=== PATIENT | female | born 1970 | race African-American/Black ===

== ENCOUNTER 2017-08-06 10:29 | Inpatient (IN) ==
[2017-08-06] MEDS ORDERED: HYDROmorphone 2 MG/1 ML VIAL IV STA (10:48)
[2017-08-06] MEDS ORDERED: ONDANSETRON 4 MG/2 ML VIAL IV STA (10:48)
[2017-08-06] MEDS: PIPERACILLIN/TAZOBACTAM 3,375 MG in SODIUM CHLORIDE 0.9% 100 ML IV SCH ×2 (11:30→18:44)
[2017-08-06 11:31] LABS: Basophils % 0.1 % (0.0-0.8); Eosinophils # 0.1 10*3/uL (0.0-0.87); Eosinophils % 0.9 % (0.00-10.9); Hematocrit 38.4 VOL% (35.7-47.0); Hemoglobin 12.5 GM/DL (12.0-16.0); Immature Granulocytes % 0.6 %; Immature Granulocytes Absolute 0.08 #; Lymphocytes # 1.1 10*3/uL (1.4-4.0); Lymphocytes % 8.4 % (21.3-54.2); Mean Corpuscular HGB Conc 32.6 GM/DL (32-36); Mean Corpuscular Hemoglobin 27 PG (27-34); Mean Corpuscular Volume 83.5 FL (87-102); Mean Platelet Volume 9.2 FL (9.6-12.0); Monocytes # 0.9 10*3/uL (0.11-0.8); Monocytes % 6.8 % (1.7-12.7); Neutrophils # 11.3 10*3/uL (1.4-7.4); Neutrophils % 83.2 % (38.7-73.9); Platelet Count 487 T/CUMM (130-400); Red Cell Distribution Width 13.5 % (9.3-17.3); White Blood Count 13.6 T/CUMM (4-12)
[2017-08-06 11:39] LABS: PT Patient Result 10.2 SECS; Partial Thromboplastin Time 22.5 SECS (0-40)
[2017-08-06 12:00] LABS: Bilirubin,Total 0.4 MG/DL (0.2-1.0); Calcium 8.9 MG/DL (8.5-10.1); Lactic Acid 1.4 MMOL/L (0.4-2.0); Osmolality,Calculated 283.7 MOS/KG (273-304); Potassium 3.3 MMOL/L (3.5-5.1); Total Protein 8.2 G/DL (6.4-8.3)
[2017-08-06] MEDS ORDERED: HYDROmorphone 2 MG/1 ML VIAL IV ONE (12:42)
[2017-08-06 12:50] LABS: Apearance,Urine Slightly Hazy (Clear); Bilirubin,Urine Negative (Negative); Blood, Urine Negative (Negative); Glucose,Urine (UA) >=500 mg/dL (Negative); Ketones,Urine 80 mg/dL (Negative); Mucus,Urine Occasional /LPF (Occasional); Nitrite,Urine Negative (Negative); Protein,Urine 100 MG/DL; RBC,Urine 3 /HPF (0-4); Squamous Epithelial Cell,Urine Occasional /HPF (0-10); Urine Color Yellow (Yellow); Urine Specific Gravity 1.035 (1.001-1.035); WBC,Urine 4 /HPF (0-6)
[2017-08-06] MEDS: VANCOMYCIN INJ 1,000 MG in SODIUM CHLORIDE 0.9% 250 ML IV SCH ×2 (13:31→23:08)
[2017-08-06] MEDS ORDERED: DEXTROSE 50% 25 GM/50 ML VIAL IV PRN (16:03)
[2017-08-06] MEDS ORDERED: GLUCAGON 1 MG VIAL IM PRN (16:03)
[2017-08-06] MEDS: methIMAzole 10 MG TABLET PO SCH ×2 (16:51→22:46)
[2017-08-06] MEDS: INSULIN REGULAR 100 UNIT/ML SUBCUT SCH ×2 (16:52→22:51)
[2017-08-06] MEDS: ENOXAPARIN 40 MG/0.4 ML SYRINGE SUBCUT SCH (16:52)
[2017-08-06] MEDS: SODIUM CHLORIDE 0.9% 1,000 ML IV SCH (16:53)
[2017-08-06 17:38] LABS: Free T4 (Free Thyroxine) 1.75 NG/DL (0.76-1.46); Thyroid Stimulating Hormone 1.04 uIU/ml (0.358-3.74)
[2017-08-06] MEDS ORDERED: MORPHINE 4 MG/1 ML VIAL IV PRN (17:43)
[2017-08-06] MEDS: MORPHINE 4 MG/1 ML VIAL IV PRN (18:43)
[2017-08-06] MEDS: tiZANidine 4 MG TABLET PO SCH (22:45)
[2017-08-06] MEDS: MULTIVITAMIN (INTRINSIC) CAPSULE PO SCH (22:46)
[2017-08-06] MEDS: PANTOPRAZOLE 40 MG TABLET PO SCH (22:46)
[2017-08-06] MEDS: TOPIRAMATE 100 MG TABLET PO SCH (22:46)
[2017-08-06] MEDS: GABAPENTIN 300 MG CAPSULE PO SCH (22:46)
[2017-08-06] MEDS: INSULIN GLARGINE 100 UNIT/ML SUBCUT SCH (22:52)
[2017-08-06] MEDS: PROPRANOLOL LA 60 MG CAPSULE PO SCH (23:49)
[2017-08-07] MEDS: PIPERACILLIN/TAZOBACTAM 3,375 MG in SODIUM CHLORIDE 0.9% 100 ML IV SCH ×3 (03:16→20:50)
[2017-08-07] MEDS: ENOXAPARIN 40 MG/0.4 ML SYRINGE SUBCUT SCH ×2 (04:38→17:02)
[2017-08-07] MEDS ORDERED: FAMOTIDINE 20 MG TABLET PO ONE (06:30)
[2017-08-07] MEDS ORDERED: DIAZEPAM 5 MG TABLET PO ONE (06:30)
[2017-08-07 06:51] LABS: Basophils % 0.2 % (0.0-0.8); Eosinophils # 0.1 10*3/uL (0.0-0.87); Eosinophils % 0.5 % (0.00-10.9); Hematocrit 33.7 VOL% (35.7-47.0); Hemoglobin 10.7 GM/DL (12.0-16.0); Immature Granulocytes % 0.8 %; Immature Granulocytes Absolute 0.14 #; Lymphocytes # 1.1 10*3/uL (1.4-4.0); Lymphocytes % 6.3 % (21.3-54.2); Mean Corpuscular HGB Conc 31.8 GM/DL (32-36); Mean Corpuscular Hemoglobin 27 PG (27-34); Mean Corpuscular Volume 86.2 FL (87-102); Mean Platelet Volume 9.5 FL (9.6-12.0); Monocytes # 1.3 10*3/uL (0.11-0.8); Monocytes % 7.4 % (1.7-12.7); Neutrophils # 14.6 10*3/uL (1.4-7.4); Neutrophils % 84.8 % (38.7-73.9); Platelet Count 467 T/CUMM (130-400); Red Blood Count 3.91 MC/CUMM (3.8-5.5); Red Cell Distribution Width 13.7 % (9.3-17.3); White Blood Count 17.2 T/CUMM (4-12)
[2017-08-07 07:29] LABS: Calcium 8.4 MG/DL (8.5-10.1); Osmolality,Calculated 279.5 MOS/KG (273-304); Potassium 3.2 MMOL/L (3.5-5.1)
[2017-08-07] MEDS: methIMAzole 10 MG TABLET PO SCH ×3 (07:51→17:02)
[2017-08-07] MEDS: INSULIN REGULAR 100 UNIT/ML SUBCUT SCH ×4 (07:52→20:48)
[2017-08-07] MEDS: ACETAMINOPHEN 325 MG TABLET PO PRN ×2 (08:01→20:49)
[2017-08-07] MEDS: PROPRANOLOL LA 60 MG CAPSULE PO SCH ×2 (08:11→20:49)
[2017-08-07] MEDS: TOPIRAMATE 100 MG TABLET PO SCH ×2 (08:16→20:50)
[2017-08-07] MEDS ORDERED: HYDROmorphone 2 MG/1 ML VIAL IV PRN (10:05)
[2017-08-07] MEDS ORDERED: HYDROmorphone 2 MG/1 ML VIAL ONE (10:05)
[2017-08-07] MEDS ORDERED: ONDANSETRON 4 MG/2 ML VIAL IV PRN (10:05)
[2017-08-07] MEDS ORDERED: ONDANSETRON 4 MG/2 ML VIAL ONE (10:06)
[2017-08-07] MEDS ORDERED: SEVOFLURANE 1 UNIT/15 MINUTE INH ONE (10:14)
[2017-08-07] MEDS ORDERED: PROPOFOL 200 MG/20 ML VIAL IV ONE (10:14)
[2017-08-07] MEDS ORDERED: fentaNYL 100 MCG/2 ML VIAL ONE (10:16)
[2017-08-07] MEDS: INSULIN GLARGINE 100 UNIT/ML SUBCUT SCH ×2 (10:54→20:48)
[2017-08-07] MEDS: GABAPENTIN 300 MG CAPSULE PO SCH ×3 (10:54→20:39)
[2017-08-07] MEDS: MULTIVITAMIN (INTRINSIC) CAPSULE PO SCH ×2 (10:54→20:39)
[2017-08-07] MEDS: PANTOPRAZOLE 40 MG TABLET PO SCH ×2 (10:54→20:50)
[2017-08-07] MEDS: tiZANidine 4 MG TABLET PO SCH ×2 (10:54→20:39)
[2017-08-07] MEDS ORDERED: POTASSIUM CHLORIDE 20 MEQ TABLET PO ONE (11:16)
[2017-08-07] MEDS ORDERED: POTASSIUM CHLORIDE 20 MEQ TABLET PO PRN (11:16)
[2017-08-07] MEDS: VANCOMYCIN INJ 1,000 MG in SODIUM CHLORIDE 0.9% 250 ML IV SCH (11:28)
[2017-08-07] MEDS: SODIUM CHLORIDE 0.9% 1,000 ML IV SCH ×3 (12:29→22:33)
[2017-08-07] MEDS: POTASSIUM CHLORIDE RIDER 10 MEQ in PREMIX 1 EACH IV PRN ×2 (17:00→18:25)
[2017-08-08] MEDS: VANCOMYCIN INJ 1,000 MG in SODIUM CHLORIDE 0.9% 250 ML IV SCH ×3 (00:36→22:37)
[2017-08-08] MEDS: methIMAzole 10 MG TABLET PO SCH ×4 (00:36→18:32)
[2017-08-08] MEDS: PIPERACILLIN/TAZOBACTAM 3,375 MG in SODIUM CHLORIDE 0.9% 100 ML IV SCH ×3 (04:20→18:32)
[2017-08-08] MEDS: ENOXAPARIN 40 MG/0.4 ML SYRINGE SUBCUT SCH ×2 (04:21→16:54)
[2017-08-08] MEDS: INSULIN REGULAR 100 UNIT/ML SUBCUT SCH ×4 (08:20→21:49)
[2017-08-08] MEDS: INSULIN GLARGINE 100 UNIT/ML SUBCUT SCH ×2 (08:20→21:54)
[2017-08-08] MEDS: PROPRANOLOL LA 60 MG CAPSULE PO SCH ×2 (08:21→21:53)
[2017-08-08] MEDS: MULTIVITAMIN (INTRINSIC) CAPSULE PO SCH ×2 (08:21→21:54)
[2017-08-08] MEDS: tiZANidine 4 MG TABLET PO SCH ×2 (08:21→21:54)
[2017-08-08] MEDS: GABAPENTIN 300 MG CAPSULE PO SCH ×3 (08:21→21:54)
[2017-08-08] MEDS: TOPIRAMATE 100 MG TABLET PO SCH ×2 (08:21→21:54)
[2017-08-08] MEDS: PANTOPRAZOLE 40 MG TABLET PO SCH ×2 (08:21→21:54)
[2017-08-08] MEDS: SODIUM CHLOR 0.9% KCL 40 MEQ 40 MEQ/1,000 ML BAG IV SCH ×3 (09:28→18:40)
[2017-08-09] MEDS: methIMAzole 10 MG TABLET PO SCH ×4 (01:50→17:57)
[2017-08-09] MEDS: SODIUM CHLOR 0.9% KCL 40 MEQ 40 MEQ/1,000 ML BAG IV SCH ×2 (03:13→09:34)
[2017-08-09] MEDS: PIPERACILLIN/TAZOBACTAM 3,375 MG in SODIUM CHLORIDE 0.9% 100 ML IV SCH ×3 (03:13→21:29)
[2017-08-09] MEDS: ENOXAPARIN 40 MG/0.4 ML SYRINGE SUBCUT SCH ×2 (04:00→16:52)
[2017-08-09 06:57] LABS: Basophils % 0.3 % (0.0-0.8); Eosinophils # 0.2 10*3/uL (0.0-0.87); Eosinophils % 2.3 % (0.00-10.9); Hematocrit 30.7 VOL% (35.7-47.0); Hemoglobin 9.5 GM/DL (12.0-16.0); Immature Granulocytes % 0.7 %; Immature Granulocytes Absolute 0.07 #; Lymphocytes % 10.3 % (21.3-54.2); Mean Corpuscular HGB Conc 30.9 GM/DL (32-36); Mean Corpuscular Hemoglobin 27 PG (27-34); Mean Corpuscular Volume 87.5 FL (87-102); Mean Platelet Volume 9.1 FL (9.6-12.0); Monocytes # 0.7 10*3/uL (0.11-0.8); Monocytes % 7.2 % (1.7-12.7); Neutrophils % 79.2 % (38.7-73.9); Platelet Count 403 T/CUMM (130-400); Red Blood Count 3.51 MC/CUMM (3.8-5.5); White Blood Count 10.1 T/CUMM (4-12)
[2017-08-09 07:18] LABS: Calcium 7.9 MG/DL (8.5-10.1); Potassium 4.1 MMOL/L (3.5-5.1)
[2017-08-09] MEDS: INSULIN REGULAR 100 UNIT/ML SUBCUT SCH ×4 (07:30→21:29)
[2017-08-09] MEDS: POTASSIUM CHLORIDE INJ 20 MEQ, SODIUM CHLORIDE 23.4% CONC INJ 38.5 MEQ in STERILE WATER... IV SCH ×2 (09:06→21:27)
[2017-08-09] MEDS: GABAPENTIN 300 MG CAPSULE PO SCH ×3 (09:06→21:31)
[2017-08-09] MEDS: PANTOPRAZOLE 40 MG TABLET PO SCH ×2 (09:06→21:30)
[2017-08-09] MEDS: tiZANidine 4 MG TABLET PO SCH ×2 (09:06→21:31)
[2017-08-09] MEDS: PROPRANOLOL LA 60 MG CAPSULE PO SCH ×2 (09:07→21:31)
[2017-08-09] MEDS: MULTIVITAMIN (INTRINSIC) CAPSULE PO SCH ×2 (09:07→21:30)
[2017-08-09] MEDS: INSULIN GLARGINE 100 UNIT/ML SUBCUT SCH ×2 (09:07→21:29)
[2017-08-09] MEDS: TOPIRAMATE 100 MG TABLET PO SCH ×2 (09:08→21:30)
[2017-08-09] MEDS: VANCOMYCIN INJ 1,000 MG in SODIUM CHLORIDE 0.9% 250 ML IV SCH (11:21)
[2017-08-10] MEDS: methIMAzole 10 MG TABLET PO SCH ×5 (01:32→20:11)
[2017-08-10] MEDS: VANCOMYCIN INJ 1,000 MG in SODIUM CHLORIDE 0.9% 250 ML IV SCH ×2 (01:32→10:15)
[2017-08-10] MEDS: ENOXAPARIN 40 MG/0.4 ML SYRINGE SUBCUT SCH ×2 (05:15→16:53)
[2017-08-10] MEDS: POTASSIUM CHLORIDE INJ 20 MEQ, SODIUM CHLORIDE 23.4% CONC INJ 38.5 MEQ in STERILE WATER... IV SCH (05:15)
[2017-08-10] MEDS: PIPERACILLIN/TAZOBACTAM 3,375 MG in SODIUM CHLORIDE 0.9% 100 ML IV SCH ×2 (05:15→11:36)
[2017-08-10 07:38] LABS: Basophils % 0.3 % (0.0-0.8); Eosinophils # 0.3 10*3/uL (0.0-0.87); Eosinophils % 3.1 % (0.00-10.9); Hematocrit 32.3 VOL% (35.7-47.0); Hemoglobin 9.7 GM/DL (12.0-16.0); Immature Granulocytes Absolute 0.09 #; Lymphocytes # 1.2 10*3/uL (1.4-4.0); Lymphocytes % 13.1 % (21.3-54.2); Mean Corpuscular Hemoglobin 27 PG (27-34); Mean Corpuscular Volume 88.5 FL (87-102); Mean Platelet Volume 9.1 FL (9.6-12.0); Monocytes # 0.8 10*3/uL (0.11-0.8); Monocytes % 8.5 % (1.7-12.7); Neutrophils # 6.8 10*3/uL (1.4-7.4); Platelet Count 425 T/CUMM (130-400); Red Blood Count 3.65 MC/CUMM (3.8-5.5); Red Cell Distribution Width 14.1 % (9.3-17.3); White Blood Count 9.2 T/CUMM (4-12)
[2017-08-10 08:05] LABS: Calcium 7.9 MG/DL (8.5-10.1); Osmolality,Calculated 290.6 MOS/KG (273-304); Potassium 4.2 MMOL/L (3.5-5.1)
[2017-08-10] MEDS: INSULIN REGULAR 100 UNIT/ML SUBCUT SCH ×4 (08:46→20:11)
[2017-08-10] MEDS: PROPRANOLOL LA 60 MG CAPSULE PO SCH ×2 (10:11→20:11)
[2017-08-10] MEDS: TOPIRAMATE 100 MG TABLET PO SCH ×2 (10:11→20:11)
[2017-08-10] MEDS: GABAPENTIN 300 MG CAPSULE PO SCH ×3 (10:11→20:11)
[2017-08-10] MEDS: MULTIVITAMIN (INTRINSIC) CAPSULE PO SCH ×2 (10:11→20:11)
[2017-08-10] MEDS: tiZANidine 4 MG TABLET PO SCH ×2 (10:11→20:12)
[2017-08-10] MEDS: INSULIN GLARGINE 100 UNIT/ML SUBCUT SCH ×2 (10:11→20:10)
[2017-08-10] MEDS: PANTOPRAZOLE 40 MG TABLET PO SCH ×2 (10:11→20:11)
[2017-08-10] MEDS: SODIUM HYPOCHLORITE 0.25% IRRIG 473 ML BOTTLE TOP SCH (14:44)
[2017-08-10] MEDS: SODIUM CHLORIDE 23.4% CONC INJ 38.5 MEQ in STERILE WATER INJ 1,000 ML IV SCH (15:40)
[2017-08-10] MEDS: ceFAZolin 1,000 MG in SYRINGE 1 EACH IV SCH (15:42)
[2017-08-11] MEDS: ENOXAPARIN 40 MG/0.4 ML SYRINGE SUBCUT SCH ×2 (03:37→16:31)
[2017-08-11] MEDS: ceFAZolin 1,000 MG in SYRINGE 1 EACH IV SCH ×2 (03:37→16:02)
[2017-08-11 06:45] LABS: Calcium 8.7 MG/DL (8.5-10.1); Osmolality,Calculated 286.1 MOS/KG (273-304); Potassium 3.9 MMOL/L (3.5-5.1)
[2017-08-11] MEDS: SODIUM CHLORIDE 23.4% CONC INJ 38.5 MEQ in STERILE WATER INJ 1,000 ML IV SCH ×2 (09:03→18:50)
[2017-08-11] MEDS: methIMAzole 10 MG TABLET PO SCH ×3 (09:05→22:06)
[2017-08-11] MEDS: tiZANidine 4 MG TABLET PO SCH ×2 (09:05→22:06)
[2017-08-11] MEDS: MULTIVITAMIN (INTRINSIC) CAPSULE PO SCH ×2 (09:05→22:05)
[2017-08-11] MEDS: PANTOPRAZOLE 40 MG TABLET PO SCH ×2 (09:05→22:06)
[2017-08-11] MEDS: PROPRANOLOL LA 60 MG CAPSULE PO SCH ×2 (09:05→22:05)
[2017-08-11] MEDS: INSULIN LISPRO 100 UNIT/ML SUBCUT SCH ×3 (09:05→16:31)
[2017-08-11] MEDS: INSULIN GLARGINE 100 UNIT/ML SUBCUT SCH ×2 (09:06→22:06)
[2017-08-11] MEDS: TOPIRAMATE 100 MG TABLET PO SCH ×2 (09:06→22:06)
[2017-08-11] MEDS: INSULIN REGULAR 100 UNIT/ML SUBCUT SCH ×5 (09:06→22:06)
[2017-08-11] MEDS: GABAPENTIN 300 MG CAPSULE PO SCH ×3 (09:06→22:06)
[2017-08-11] MEDS: SODIUM HYPOCHLORITE 0.25% IRRIG 473 ML BOTTLE TOP SCH (10:04)
[2017-08-12] MEDS: ceFAZolin 1,000 MG in SYRINGE 1 EACH IV SCH ×2 (03:46→15:57)
[2017-08-12] MEDS: ENOXAPARIN 40 MG/0.4 ML SYRINGE SUBCUT SCH ×2 (03:49→18:08)
[2017-08-12] MEDS: SODIUM CHLORIDE 23.4% CONC INJ 38.5 MEQ in STERILE WATER INJ 1,000 ML IV SCH ×2 (05:45→18:08)
[2017-08-12] MEDS: INSULIN LISPRO 100 UNIT/ML SUBCUT SCH ×3 (09:31→16:03)
[2017-08-12] MEDS: INSULIN REGULAR 100 UNIT/ML SUBCUT SCH ×4 (09:32→22:28)
[2017-08-12] MEDS: methIMAzole 10 MG TABLET PO SCH ×3 (09:32→22:26)
[2017-08-12] MEDS: PROPRANOLOL LA 60 MG CAPSULE PO SCH ×2 (09:32→22:26)
[2017-08-12] MEDS: INSULIN GLARGINE 100 UNIT/ML SUBCUT SCH ×2 (09:32→22:27)
[2017-08-12] MEDS: MULTIVITAMIN (INTRINSIC) CAPSULE PO SCH ×2 (09:32→22:26)
[2017-08-12] MEDS: TOPIRAMATE 100 MG TABLET PO SCH ×2 (09:32→22:25)
[2017-08-12] MEDS: tiZANidine 4 MG TABLET PO SCH ×2 (09:33→22:26)
[2017-08-12] MEDS: GABAPENTIN 300 MG CAPSULE PO SCH ×3 (09:33→22:25)
[2017-08-12] MEDS: PANTOPRAZOLE 40 MG TABLET PO SCH ×2 (09:33→22:26)
[2017-08-12] MEDS: SODIUM HYPOCHLORITE 0.25% IRRIG 473 ML BOTTLE TOP SCH (11:43)
[2017-08-13] MEDS: SODIUM CHLORIDE 23.4% CONC INJ 38.5 MEQ in STERILE WATER INJ 1,000 ML IV SCH ×2 (00:51→10:22)
[2017-08-13] MEDS: ceFAZolin 1,000 MG in SYRINGE 1 EACH IV SCH ×2 (03:33→14:05)
[2017-08-13] MEDS: ENOXAPARIN 40 MG/0.4 ML SYRINGE SUBCUT SCH ×2 (05:01→17:47)
[2017-08-13 07:48] LABS: Basophils % 0.4 % (0.0-0.8); Eosinophils # 0.2 10*3/uL (0.0-0.87); Eosinophils % 1.9 % (0.00-10.9); Hematocrit 30.3 VOL% (35.7-47.0); Immature Granulocytes % 1.8 %; Lymphocytes # 1.3 10*3/uL (1.4-4.0); Lymphocytes % 11.5 % (21.3-54.2); Mean Corpuscular Hemoglobin 27 PG (27-34); Mean Corpuscular Volume 82.8 FL (87-102); Mean Platelet Volume 9.3 FL (9.6-12.0); Monocytes # 1.2 10*3/uL (0.11-0.8); Monocytes % 10.2 % (1.7-12.7); Neutrophils # 8.4 10*3/uL (1.4-7.4); Neutrophils % 74.2 % (38.7-73.9); Platelet Count 418 T/CUMM (130-400); Red Blood Count 3.66 MC/CUMM (3.8-5.5); Red Cell Distribution Width 14.5 % (9.3-17.3); White Blood Count 11.3 T/CUMM (4-12)
[2017-08-13 08:15] LABS: Calcium 8.3 MG/DL (8.5-10.1); Osmolality,Calculated 280.5 MOS/KG (273-304); Potassium 3.5 MMOL/L (3.5-5.1)
[2017-08-13] MEDS: INSULIN REGULAR 100 UNIT/ML SUBCUT SCH ×3 (09:00→17:47)
[2017-08-13] MEDS: INSULIN LISPRO 100 UNIT/ML SUBCUT SCH ×3 (10:21→17:48)
[2017-08-13] MEDS: INSULIN GLARGINE 100 UNIT/ML SUBCUT SCH (10:21)
[2017-08-13] MEDS: TOPIRAMATE 100 MG TABLET PO SCH (10:21)
[2017-08-13] MEDS: PANTOPRAZOLE 40 MG TABLET PO SCH (10:21)
[2017-08-13] MEDS: MULTIVITAMIN (INTRINSIC) CAPSULE PO SCH (10:21)
[2017-08-13] MEDS: methIMAzole 10 MG TABLET PO SCH ×2 (10:21→14:05)
[2017-08-13] MEDS: GABAPENTIN 300 MG CAPSULE PO SCH ×2 (10:22→14:05)
[2017-08-13] MEDS: PROPRANOLOL LA 60 MG CAPSULE PO SCH (10:22)
[2017-08-13] MEDS: tiZANidine 4 MG TABLET PO SCH (10:22)
[2017-08-13] MEDS: SODIUM HYPOCHLORITE 0.25% IRRIG 473 ML BOTTLE TOP SCH (10:23)
[2017-08-13] MEDS: MORPHINE 4 MG/1 ML VIAL IV PRN (16:20)
[2017-08-13 17:29] VITALS: BP 143/89
== END 2017-08-13 17:51 | disposition swing bed (61) | DRG 710 ==
LOC: N.ED 10:29 → N.EDINP 12:01 → SUATTDRO 12:01 → N.5E 12:34
PROVIDERS: ADMIT Hospitalist; ATTEND Internal Medicine

== ENCOUNTER 2018-04-04 14:07 | Inpatient (IN) ==
[2018-04-04] MEDS ORDERED: MORPHINE 4 MG/1 ML VIAL IV STA (15:17)
[2018-04-04] MEDS ORDERED: ONDANSETRON 4 MG/2 ML VIAL IV STA (15:17)
[2018-04-04 15:46] LABS: Basophils % 0.3 % (0.0-0.8); Eosinophils # 0.1 10*3/uL (0.0-0.87); Eosinophils % 0.7 % (0.00-10.9); Hematocrit 36.2 VOL% (35.7-47.0); Hemoglobin 11.1 GM/DL (12.0-16.0); Immature Granulocytes % 0.5 %; Immature Granulocytes Absolute 0.05 #; Lymphocytes # 1.8 10*3/uL (1.4-4.0); Lymphocytes % 17.6 % (21.3-54.2); Mean Corpuscular HGB Conc 30.7 GM/DL (32-36); Mean Corpuscular Hemoglobin 26 PG (27-34); Mean Corpuscular Volume 83.4 FL (87-102); Mean Platelet Volume 9.4 FL (9.6-12.0); Monocytes # 0.6 10*3/uL (0.11-0.8); Monocytes % 6.3 % (1.7-12.7); Neutrophils # 7.5 10*3/uL (1.4-7.4); Neutrophils % 74.6 % (38.7-73.9); Platelet Count 330 T/CUMM (130-400); Red Blood Count 4.34 MC/CUMM (3.8-5.5); Red Cell Distribution Width 13.3 % (9.3-17.3); White Blood Count 10.1 T/CUMM (4-12)
[2018-04-04 15:58] LABS: INR 0.9
[2018-04-04 16:08] LABS: Calcium 8.6 MG/DL (8.5-10.1); Osmolality,Calculated 280.5 MOS/KG (273-304); Potassium 3.5 MMOL/L (3.5-5.1)
[2018-04-04] MEDS ORDERED: ONDANSETRON 4 MG/2 ML VIAL ONE (16:11)
[2018-04-04] MEDS ORDERED: MORPHINE 4 MG/1 ML VIAL ONE (16:11)
[2018-04-04] MEDS ORDERED: GLUCAGON 1 MG VIAL IM PRN (20:26)
[2018-04-04] MEDS ORDERED: DEXTROSE 50% 25 GM/50 ML SYRINGE IV PRN (20:26)
[2018-04-04 21:02] LABS: T4 (Thyroxine) 13.9 UG/DL (4.7-13.3); Thyroid Stimulating Hormone < 0.005 uIU/ml (0.358-3.74)
[2018-04-04] MEDS ORDERED: ONDANSETRON 4 MG/2 ML VIAL IV PRN (22:38)
[2018-04-04] MEDS: ATORVASTATIN 40 MG TABLET PO SCH (22:54)
[2018-04-04] MEDS: GABAPENTIN 300 MG CAPSULE PO SCH (22:54)
[2018-04-04] MEDS: SODIUM CHLORIDE 0.9% 1,000 ML IV SCH (22:55)
[2018-04-04] MEDS: LACTATED RINGERS 1,000 ML IV SCH (22:56)
[2018-04-04] MEDS: INSULIN REGULAR 100 UNIT/ML SUBCUT SCH (22:56)
[2018-04-04] MEDS: HYDROmorphone 2 MG/1 ML VIAL IV PRN (22:57)
[2018-04-04] MEDS ORDERED: INFLUENZA VIRUS VACCINE 0.5 ML SYRINGE IM ONE (23:01)
[2018-04-05] MEDS: HEPARIN DRIP 25,000 UNITS/500 ML PREMIX IV SCH ×2 (00:28→20:39)
[2018-04-05 04:20] LABS: Basophils % 0.2 % (0.0-0.8); Eosinophils # 0.1 10*3/uL (0.0-0.87); Eosinophils % 0.5 % (0.00-10.9); Hemoglobin 10.5 GM/DL (12.0-16.0); Immature Granulocytes % 0.5 %; Immature Granulocytes Absolute 0.05 #; Lymphocytes # 2.3 10*3/uL (1.4-4.0); Lymphocytes % 20.8 % (21.3-54.2); Mean Corpuscular HGB Conc 30.9 GM/DL (32-36); Mean Corpuscular Hemoglobin 26 PG (27-34); Mean Corpuscular Volume 82.5 FL (87-102); Mean Platelet Volume 9.4 FL (9.6-12.0); Monocytes # 0.7 10*3/uL (0.11-0.8); Monocytes % 6.2 % (1.7-12.7); Neutrophils # 7.8 10*3/uL (1.4-7.4); Neutrophils % 71.8 % (38.7-73.9); Platelet Count 311 T/CUMM (130-400); Red Blood Count 4.12 MC/CUMM (3.8-5.5); Red Cell Distribution Width 13.4 % (9.3-17.3); White Blood Count 10.8 T/CUMM (4-12)
[2018-04-05 04:49] LABS: Calcium 8.6 MG/DL (8.5-10.1); Osmolality,Calculated 274.7 MOS/KG (273-304); Potassium 3.3 MMOL/L (3.5-5.1)
[2018-04-05] MEDS: SODIUM CHLORIDE 0.9% 1,000 ML IV SCH ×3 (06:11→20:36)
[2018-04-05] MEDS: HYDROmorphone 2 MG/1 ML VIAL IV PRN ×2 (06:12→12:13)
[2018-04-05] MEDS: INSULIN REGULAR 100 UNIT/ML SUBCUT SCH ×4 (07:36→22:05)
[2018-04-05] MEDS ORDERED: GLUCAGON 1 MG VIAL IM PRN (09:21)
[2018-04-05] MEDS ORDERED: DEXTROSE 50% 25 GM/50 ML VIAL IV PRN (09:21)
[2018-04-05] MEDS: METOPROLOL TARTRATE 25 MG TABLET PO SCH ×2 (10:13→20:37)
[2018-04-05] MEDS: GABAPENTIN 300 MG CAPSULE PO SCH ×3 (10:13→20:37)
[2018-04-05] MEDS: methIMAzole 10 MG TABLET PO SCH (10:13)
[2018-04-05] MEDS: PANTOPRAZOLE 40 MG TABLET PO SCH (10:13)
[2018-04-05] MEDS: LACTATED RINGERS 1,000 ML IV SCH (20:36)
[2018-04-05] MEDS: ATORVASTATIN 40 MG TABLET PO SCH (20:38)
[2018-04-05] MEDS ORDERED: INSULIN GLARGINE 100 UNIT/ML SUBCUT SCH (21:00)
[2018-04-06] MEDS: HYDROmorphone 2 MG/1 ML VIAL IV PRN ×5 (01:20→22:18)
[2018-04-06] MEDS: LACTATED RINGERS 1,000 ML IV SCH ×2 (01:38→20:28)
[2018-04-06] MEDS: POTASSIUM CHLORIDE 20 MEQ TABLET PO PRN (03:50)
[2018-04-06 05:40] LABS: Basophils % 0.2 % (0.0-0.8); Eosinophils % 0.4 % (0.00-10.9); Hematocrit 33.3 VOL% (35.7-47.0); Hemoglobin 10.4 GM/DL (12.0-16.0); Immature Granulocytes % 0.3 %; Immature Granulocytes Absolute 0.03 #; Lymphocytes # 1.7 10*3/uL (1.4-4.0); Lymphocytes % 17.4 % (21.3-54.2); Mean Corpuscular HGB Conc 31.2 GM/DL (32-36); Mean Corpuscular Hemoglobin 26 PG (27-34); Mean Corpuscular Volume 82.2 FL (87-102); Mean Platelet Volume 10.1 FL (9.6-12.0); Monocytes # 0.9 10*3/uL (0.11-0.8); Monocytes % 8.9 % (1.7-12.7); Neutrophils # 7.2 10*3/uL (1.4-7.4); Neutrophils % 72.8 % (38.7-73.9); Platelet Count 341 T/CUMM (130-400); Red Blood Count 4.05 MC/CUMM (3.8-5.5); Red Cell Distribution Width 13.2 % (9.3-17.3); Risk Ratio 3.75; VLDL CHOLESTEROL 19.8 MG/DL; White Blood Count 9.9 T/CUMM (4-12)
[2018-04-06 05:47] LABS: Calcium 8.5 MG/DL (8.5-10.1); Potassium 3.2 MMOL/L (3.5-5.1)
[2018-04-06] MEDS: SODIUM CHLORIDE 0.9% 1,000 ML IV SCH ×3 (05:47→20:30)
[2018-04-06] MEDS: methIMAzole 10 MG TABLET PO SCH ×3 (08:48→22:03)
[2018-04-06] MEDS: GABAPENTIN 300 MG CAPSULE PO SCH ×3 (08:48→22:03)
[2018-04-06] MEDS: ASPIRIN EC 81 MG TABLET PO SCH (08:49)
[2018-04-06] MEDS: METOPROLOL TARTRATE 25 MG TABLET PO SCH (08:49)
[2018-04-06] MEDS: PANTOPRAZOLE 40 MG TABLET PO SCH (08:49)
[2018-04-06] MEDS: INSULIN REGULAR 100 UNIT/ML SUBCUT SCH ×4 (08:50→22:04)
[2018-04-06] MEDS: ATORVASTATIN 40 MG TABLET PO SCH (22:03)
[2018-04-06] MEDS: INSULIN GLARGINE 100 UNIT/ML SUBCUT SCH (22:04)
[2018-04-06] MEDS: METOPROLOL TARTRATE 50 MG TABLET PO SCH (22:20)
[2018-04-06] MEDS: HEPARIN DRIP 25,000 UNITS/500 ML PREMIX IV SCH (23:42)
[2018-04-07 00:52] LABS: Basophils % 0.2 % (0.0-0.8); Eosinophils % 0.4 % (0.00-10.9); Hematocrit 29.7 VOL% (35.7-47.0); Hemoglobin 9.3 GM/DL (12.0-16.0); Immature Granulocytes % 0.4 %; Immature Granulocytes Absolute 0.04 #; Lymphocytes # 1.6 10*3/uL (1.4-4.0); Lymphocytes % 15.7 % (21.3-54.2); Mean Corpuscular HGB Conc 31.3 GM/DL (32-36); Mean Corpuscular Hemoglobin 26 PG (27-34); Mean Corpuscular Volume 81.6 FL (87-102); Mean Platelet Volume 9.7 FL (9.6-12.0); Monocytes # 0.7 10*3/uL (0.11-0.8); Monocytes % 7.2 % (1.7-12.7); Neutrophils # 7.8 10*3/uL (1.4-7.4); Neutrophils % 76.1 % (38.7-73.9); Platelet Count 321 T/CUMM (130-400); Red Blood Count 3.64 MC/CUMM (3.8-5.5); Red Cell Distribution Width 13.2 % (9.3-17.3); White Blood Count 10.2 T/CUMM (4-12)
[2018-04-07 01:09] LABS: Calcium 8.3 MG/DL (8.5-10.1); Osmolality,Calculated 270.1 MOS/KG (273-304); Potassium 3.1 MMOL/L (3.5-5.1)
[2018-04-07] MEDS: HYDROmorphone 2 MG/1 ML VIAL IV PRN ×7 (01:58→22:55)
[2018-04-07] MEDS: LACTATED RINGERS 1,000 ML IV SCH (05:46)
[2018-04-07] MEDS: SODIUM CHLORIDE 0.9% 1,000 ML IV SCH ×5 (05:50→18:07)
[2018-04-07] MEDS ORDERED: DIAZEPAM 5 MG TABLET PO ONE (07:30)
[2018-04-07] MEDS ORDERED: HEPARIN 5,000 UNIT/1 ML VIAL IV ONE (07:30)
[2018-04-07] MEDS ORDERED: HEPARIN/NACL 0.9% 2 UNITS/ML 2,000 ML IV ONE (07:44)
[2018-04-07] MEDS ORDERED: DIAZEPAM 5 MG TABLET ONE (07:47)
[2018-04-07] MEDS: POTASSIUM CHLORIDE 20 MEQ TABLET PO PRN ×4 (07:48→18:14)
[2018-04-07] MEDS ORDERED: fentaNYL 100 MCG/2 ML VIAL ONE (08:45)
[2018-04-07] MEDS ORDERED: HEPARIN 5,000 UNIT/1 ML VIAL ONE (08:45)
[2018-04-07] MEDS ORDERED: MIDAZOLAM 2 MG/2 ML VIAL ONE (08:45)
[2018-04-07] MEDS ORDERED: MIDAZOLAM 2 MG/2 ML VIAL IV ONE ×2 (08:50→14:03)
[2018-04-07] MEDS ORDERED: fentaNYL 100 MCG/2 ML VIAL IV ONE ×2 (08:52→14:03)
[2018-04-07] MEDS ORDERED: ALTEPLASE 24 MG in SODIUM CHLORIDE 0.9% 480 ML IV SCH (09:00)
[2018-04-07] MEDS ORDERED: HEPARIN DRIP 25,000 UNITS/500 ML PREMIX IV SCH (09:00)
[2018-04-07] MEDS ORDERED: SODIUM CHLORIDE 0.45% 1,000 ML IV SCH (09:00)
[2018-04-07] MEDS ORDERED: HEPARIN/NACL 0.9% 2 UNITS/ML 1,000 ML IV ONE (09:14)
[2018-04-07] MEDS ORDERED: HEPARIN DRIP 25,000 UNITS/500 ML PREMIX IV ONE (09:43)
[2018-04-07] MEDS ORDERED: SODIUM CHLORIDE 0.9% 1,000 ML IV SCH ×2 (10:00)
[2018-04-07] MEDS ORDERED: ALTEPLASE 12 MG in SODIUM CHLORIDE 0.9% 240 ML IV ONE (10:00)
[2018-04-07] MEDS: INSULIN REGULAR 100 UNIT/ML SUBCUT SCH ×3 (10:08→17:28)
[2018-04-07] MEDS: HEPARIN DRIP 25,000 UNITS/500 ML PREMIX IV SCH ×2 (10:25→10:52)
[2018-04-07 10:41] LABS: Apearance,Urine CLEAR (Clear); Bilirubin,Urine Negative (Negative); Blood, Urine Negative (Negative); Glucose,Urine (UA) Negative (Negative); Ketones,Urine Negative (Negative); Mucus,Urine Occasional /LPF (Occasional); Nitrite,Urine Negative (Negative); Protein,Urine Negative; Squamous Epithelial Cell,Urine Occasional /HPF (0-10); Urine Color Straw (Yellow); Urine Specific Gravity 1.033 (1.001-1.035); Urine Urobilinogen < 2.0 EU/DL (0.2-1.0)
[2018-04-07] MEDS: METOPROLOL TARTRATE 50 MG TABLET PO SCH ×2 (10:45→21:45)
[2018-04-07] MEDS: methIMAzole 10 MG TABLET PO SCH ×3 (10:45→21:45)
[2018-04-07] MEDS: GABAPENTIN 300 MG CAPSULE PO SCH ×3 (10:45→21:45)
[2018-04-07] MEDS: PANTOPRAZOLE 40 MG TABLET PO SCH (10:45)
[2018-04-07] MEDS: ASPIRIN EC 81 MG TABLET PO SCH (10:46)
[2018-04-07] MEDS: ALTEPLASE 12 MG in SODIUM CHLORIDE 0.9% 240 ML IV SCH (10:50)
[2018-04-07] MEDS ORDERED: MAGNESIUM SULF RIDER 4 GM in PREMIX 1 EACH IV PRN (12:12)
[2018-04-07 12:46] LABS: PT Patient Result 10.7 SECS; Partial Thromboplastin Time 31.6 SECS (0-40)
[2018-04-07] MEDS: MAGNESIUM SULF RIDER 2 GM in PREMIX 1 EACH IV PRN (13:31)
[2018-04-07 16:22] LABS: INR 0.9; PT Patient Result 10.2 SECS
[2018-04-07 21:14] LABS: Partial Thromboplastin Time 31.2 SECS (0-40)
[2018-04-07] MEDS: ATORVASTATIN 40 MG TABLET PO SCH (21:45)
[2018-04-08] MEDS: INSULIN GLARGINE 100 UNIT/ML SUBCUT SCH ×2 (00:01→21:08)
[2018-04-08] MEDS: INSULIN REGULAR 100 UNIT/ML SUBCUT SCH ×5 (00:01→21:07)
[2018-04-08] MEDS: LORazepam 2 MG/1 ML VIAL IV PRN ×3 (00:15→03:30)
[2018-04-08 00:31] LABS: Basophils % 0.2 % (0.0-0.8); Eosinophils % 0.3 % (0.00-10.9); Hematocrit 30.6 VOL% (35.7-47.0); Hemoglobin 9.5 GM/DL (12.0-16.0); Immature Granulocytes % 0.7 %; Immature Granulocytes Absolute 0.09 #; Lymphocytes # 1.2 10*3/uL (1.4-4.0); Lymphocytes % 9.6 % (21.3-54.2); Mean Corpuscular Hemoglobin 26 PG (27-34); Mean Platelet Volume 9.5 FL (9.6-12.0); Monocytes % 8.2 % (1.7-12.7); Neutrophils # 10.1 10*3/uL (1.4-7.4); Platelet Count 294 T/CUMM (130-400); Red Blood Count 3.73 MC/CUMM (3.8-5.5); Red Cell Distribution Width 13.3 % (9.3-17.3); White Blood Count 12.5 T/CUMM (4-12)
[2018-04-08] MEDS: HYDROmorphone 2 MG/1 ML VIAL IV PRN ×2 (01:20→03:42)
[2018-04-08 01:41] LABS: Calcium 7.8 MG/DL (8.5-10.1); Osmolality,Calculated 271.7 MOS/KG (273-304); Potassium 3.9 MMOL/L (3.5-5.1)
[2018-04-08] MEDS: SODIUM CHLORIDE 0.9% 1,000 ML IV SCH ×6 (03:45→20:30)
[2018-04-08] MEDS ORDERED: SUCCINYLCHOLINE 200 MG/10 ML VIAL ONE (07:53)
[2018-04-08] MEDS ORDERED: ETOMIDATE 40 MG/20 ML VIAL IV ONE (08:09)
[2018-04-08] MEDS ORDERED: ROCURONIUM 100 MG/10 ML VIAL IV ONE (08:09)
[2018-04-08] MEDS ORDERED: METOPROLOL TARTRATE 5 MG/5 ML VIAL IV ONE ×2 (08:43→08:50)
[2018-04-08] MEDS: PROPOFOL 1,000 MG/100 ML BOTTLE IV SCH ×4 (09:13→22:08)
[2018-04-08 09:55] LABS: Basophils % 0.2 % (0.0-0.8); Eosinophils % 0.3 % (0.00-10.9); Hematocrit 32.2 VOL% (35.7-47.0); Immature Granulocytes % 0.7 %; Immature Granulocytes Absolute 0.08 #; Lymphocytes # 1.3 10*3/uL (1.4-4.0); Mean Corpuscular HGB Conc 31.1 GM/DL (32-36); Mean Corpuscular Hemoglobin 26 PG (27-34); Mean Corpuscular Volume 82.8 FL (87-102); Mean Platelet Volume 9.8 FL (9.6-12.0); Monocytes # 0.9 10*3/uL (0.11-0.8); Monocytes % 7.6 % (1.7-12.7); Neutrophils # 9.7 10*3/uL (1.4-7.4); Neutrophils % 80.2 % (38.7-73.9); Platelet Count 273 T/CUMM (130-400); Red Blood Count 3.89 MC/CUMM (3.8-5.5); Red Cell Distribution Width 13.5 % (9.3-17.3); White Blood Count 12.1 T/CUMM (4-12)
[2018-04-08 10:38] LABS: ABG Base Excess -5.2 MMOL/L (-2.5-2.5); ABG HCO3 20.2 MMOL/L (20-26); ABG Oxygen Saturation 99.6 % (95-100); ABG PCO2 32.8 MM HG (35-48); ABG PH 7.377 (7.35-7.45); ABG TCO2 17.8 MMOL/L (23-27); Pt O2 Delivery Device Ventilator
[2018-04-08 10:56] LABS: Alanine Aminotransferase 15 U/L (13-56); Alkaline Phosphatase 98 U/L (45-117); Aspartate Amino Transferase 16 U/L (0-37); Bilirubin,Indirect 0.5 MG/DL (0.0-1.0); Blood Urea Nitrogen 3 MG/DL (7-18); Calcium 7.8 MG/DL (8.5-10.1); Free T4 (Free Thyroxine) 2.26 NG/DL (0.76-1.46); Glucose 160 MG/DL (74-106); Osmolality,Calculated 267.2 MOS/KG (273-304); Potassium 3.7 MMOL/L (3.5-5.1); Sodium 134 MMOL/L (136-145); Total Protein 7.2 G/DL (6.4-8.3)
[2018-04-08 10:57] LABS: Thyroid Stimulating Hormone < 0.005 uIU/ml (0.358-3.74)
[2018-04-08] MEDS: ALTEPLASE 12 MG in SODIUM CHLORIDE 0.9% 240 ML IV SCH (11:20)
[2018-04-08] MEDS: HEPARIN DRIP 25,000 UNITS/500 ML PREMIX IV SCH ×2 (11:20→11:21)
[2018-04-08] MEDS: methIMAzole 10 MG TABLET PO SCH ×4 (11:21→23:20)
[2018-04-08] MEDS: METOPROLOL TARTRATE 50 MG TABLET PO SCH (11:21)
[2018-04-08] MEDS: fentaNYL INJ 1,250 MCG in SODIUM CHLORIDE 0.9% 225 ML IV PRN ×2 (11:44→22:26)
[2018-04-08] MEDS: ASPIRIN EC 81 MG TABLET PO SCH (11:55)
[2018-04-08] MEDS: PROPRANOLOL 40 MG TABLET PO SCH ×4 (11:55→23:20)
[2018-04-08] MEDS: GABAPENTIN 300 MG CAPSULE PO SCH ×3 (11:56→21:07)
[2018-04-08] MEDS: PANTOPRAZOLE 40 MG TABLET PO SCH (11:56)
[2018-04-08] MEDS: POTASSIUM CHLORIDE 20 MEQ TABLET PO PRN (11:56)
[2018-04-08] MEDS: LOSARTAN 25 MG TABLET PO SCH (14:04)
[2018-04-08] MEDS: ATORVASTATIN 40 MG TABLET PO SCH (21:07)
[2018-04-08 21:37] LABS: Partial Thromboplastin Time 25.8 SECS (0-40)
[2018-04-09] MEDS: SODIUM CHLORIDE 0.9% 1,000 ML IV SCH ×4 (01:04→19:05)
[2018-04-09] MEDS: PROPOFOL 1,000 MG/100 ML BOTTLE IV SCH ×2 (03:10→09:00)
[2018-04-09 03:48] LABS: ABG Base Excess -0.4 MMOL/L (-2.5-2.5); ABG HCO3 24.1 MMOL/L (20-26); ABG Oxygen Saturation 99.5 % (95-100); ABG PCO2 33.4 MM HG (35-48); ABG PH 7.449 (7.35-7.45); ABG TCO2 21.5 MMOL/L (23-27); Allen Test Positive; Pt O2 Delivery Device Ventilator
[2018-04-09] MEDS: methIMAzole 10 MG TABLET PO SCH ×4 (05:09→23:10)
[2018-04-09] MEDS: PROPRANOLOL 40 MG TABLET PO SCH ×4 (05:09→23:10)
[2018-04-09 06:06] LABS: Basophils % 0.1 % (0.0-0.8); Eosinophils # 0.2 10*3/uL (0.0-0.87); Eosinophils % 1.2 % (0.00-10.9); Hematocrit 29.8 VOL% (35.7-47.0); Immature Granulocytes % 0.6 %; Immature Granulocytes Absolute 0.07 #; Lymphocytes # 0.9 10*3/uL (1.4-4.0); Mean Corpuscular HGB Conc 30.2 GM/DL (32-36); Mean Corpuscular Hemoglobin 25 PG (27-34); Mean Corpuscular Volume 83.2 FL (87-102); Mean Platelet Volume 10.3 FL (9.6-12.0); Monocytes # 1.1 10*3/uL (0.11-0.8); Neutrophils # 10.4 10*3/uL (1.4-7.4); Neutrophils % 82.1 % (38.7-73.9); Platelet Count 281 T/CUMM (130-400); Red Blood Count 3.58 MC/CUMM (3.8-5.5); Red Cell Distribution Width 13.7 % (9.3-17.3); White Blood Count 12.6 T/CUMM (4-12)
[2018-04-09 06:22] LABS: Calcium 8.5 MG/DL (8.5-10.1); Potassium 3.5 MMOL/L (3.5-5.1)
[2018-04-09] MEDS: POTASSIUM CHLORIDE 20 MEQ TABLET PO PRN ×2 (06:40→09:19)
[2018-04-09] MEDS: INSULIN REGULAR 100 UNIT/ML SUBCUT SCH ×4 (08:24→21:06)
[2018-04-09] MEDS: GABAPENTIN 300 MG CAPSULE PO SCH ×3 (09:13→21:05)
[2018-04-09] MEDS: LOSARTAN 25 MG TABLET PO SCH (09:13)
[2018-04-09] MEDS: LANSOPRAZOLE ODT 30 MG TABLET PER TUBE SCH (09:13)
[2018-04-09] MEDS: ASPIRIN CHEW 81 MG TABLET PO SCH (09:13)
[2018-04-09] MEDS: MAGNESIUM SULF RIDER 2 GM in PREMIX 1 EACH IV PRN (09:19)
[2018-04-09 09:28] LABS: Partial Thromboplastin Time 24.7 SECS (0-40)
[2018-04-09 11:25] LABS: ABG Base Excess 0.7 MMOL/L (-2.5-2.5); ABG HCO3 23.9 MMOL/L (20-26); ABG Oxygen Saturation 98.6 % (95-100); ABG PCO2 32.6 MM HG (35-48); ABG PH 7.483 (7.35-7.45); ABG PO2 143.7 MM HG (80-95); ABG TCO2 24.9 MMOL/L (23-27); Allen Test Positive; Pt O2 Delivery Device Ventilator
[2018-04-09] MEDS: ENOXAPARIN 40 MG/0.4 ML SYRINGE SUBCUT SCH (13:54)
[2018-04-09] MEDS: HYDROmorphone 2 MG/1 ML VIAL IV PRN (13:55)
[2018-04-09] MEDS: ATORVASTATIN 40 MG TABLET PO SCH (21:05)
[2018-04-09] MEDS: LORazepam 2 MG/1 ML VIAL IV PRN (21:05)
[2018-04-09] MEDS: ACETAMINOPHEN 325 MG TABLET PO PRN (21:05)
[2018-04-09] MEDS: INSULIN GLARGINE 100 UNIT/ML SUBCUT SCH (21:06)
[2018-04-09 21:08] LABS: Partial Thromboplastin Time 27.1 SECS (0-40)
[2018-04-10] MEDS: HYDROmorphone 2 MG/1 ML VIAL IV PRN ×3 (00:28→16:45)
[2018-04-10] MEDS: ENOXAPARIN 40 MG/0.4 ML SYRINGE SUBCUT SCH ×2 (01:22→12:43)
[2018-04-10] MEDS: SODIUM CHLORIDE 0.9% 1,000 ML IV SCH ×2 (03:45→05:16)
[2018-04-10 05:34] LABS: Basophils % 0.2 % (0.0-0.8); Eosinophils # 0.1 10*3/uL (0.0-0.87); Eosinophils % 0.8 % (0.00-10.9); Hemoglobin 8.3 GM/DL (12.0-16.0); Immature Granulocytes % 0.9 %; Immature Granulocytes Absolute 0.15 #; Lymphocytes # 1.3 10*3/uL (1.4-4.0); Lymphocytes % 7.4 % (21.3-54.2); Mean Corpuscular HGB Conc 30.7 GM/DL (32-36); Mean Corpuscular Hemoglobin 25 PG (27-34); Mean Corpuscular Volume 82.6 FL (87-102); Mean Platelet Volume 10.4 FL (9.6-12.0); Monocytes # 1.2 10*3/uL (0.11-0.8); Neutrophils # 14.3 10*3/uL (1.4-7.4); Neutrophils % 83.7 % (38.7-73.9); Platelet Count 282 T/CUMM (130-400); Red Blood Count 3.27 MC/CUMM (3.8-5.5); Red Cell Distribution Width 13.7 % (9.3-17.3); White Blood Count 17.1 T/CUMM (4-12)
[2018-04-10] MEDS: methIMAzole 10 MG TABLET PO SCH ×3 (05:55→10:35)
[2018-04-10] MEDS: PROPRANOLOL 40 MG TABLET PO SCH ×4 (05:55→17:14)
[2018-04-10 06:01] LABS: Calcium 7.8 MG/DL (8.5-10.1); Osmolality,Calculated 270.7 MOS/KG (273-304); Potassium 3.5 MMOL/L (3.5-5.1)
[2018-04-10 06:11] LABS: Platelet Estimate Normal; Polychromasia Few
[2018-04-10] MEDS: POTASSIUM CHLORIDE RIDER 10 MEQ in PREMIX 1 EACH IV PRN (06:33)
[2018-04-10] MEDS: MAGNESIUM SULF RIDER 2 GM in PREMIX 1 EACH IV PRN (06:35)
[2018-04-10 09:25] LABS: Partial Thromboplastin Time 28.5 SECS (0-40)
[2018-04-10] MEDS: INSULIN REGULAR 100 UNIT/ML SUBCUT SCH ×4 (09:42→22:12)
[2018-04-10] MEDS: LOSARTAN 25 MG TABLET PO SCH (09:43)
[2018-04-10] MEDS: LANSOPRAZOLE ODT 30 MG TABLET PER TUBE SCH (09:43)
[2018-04-10] MEDS: GABAPENTIN 300 MG CAPSULE PO SCH (09:43)
[2018-04-10] MEDS: ASPIRIN CHEW 81 MG TABLET PO SCH (09:43)
[2018-04-10] MEDS ORDERED: GLUCAGON 1 MG VIAL IM PRN (09:58)
[2018-04-10] MEDS ORDERED: DEXTROSE 50% 25 GM/50 ML SYRINGE IV PRN (09:58)
[2018-04-10] MEDS ORDERED: ATORVASTATIN 40 MG TABLET PO SCH (10:00)
[2018-04-10 10:06] LABS: Apearance,Urine CLEAR (Clear); Bacteria,Urine Occasional /HPF (Few); Bilirubin,Urine Negative (Negative); Blood, Urine Moderate mg/dL (Negative); Glucose,Urine (UA) 50 mg/dL (Negative); Ketones,Urine 80 mg/dL (Negative); Mucus,Urine Occasional /LPF (Occasional); Nitrite,Urine Negative (Negative); Protein,Urine 30 MG/DL; RBC,Urine 5 /HPF (0-4); Squamous Epithelial Cell,Urine Occasional /HPF (0-10); Urine Color Yellow (Yellow); Urine Specific Gravity 1.011 (1.001-1.035); Urine Urobilinogen < 2.0 EU/DL (0.2-1.0); WBC,Urine 3 /HPF (0-6)
[2018-04-10] MEDS: GABAPENTIN 400 MG CAPSULE PO SCH ×2 (15:31→22:13)
[2018-04-10] MEDS: INSULIN GLARGINE 100 UNIT/ML SUBCUT SCH (22:12)
[2018-04-10] MEDS: ATORVASTATIN 40 MG TABLET PO SCH (22:13)
[2018-04-11] MEDS: PROPRANOLOL 40 MG TABLET PO SCH ×4 (02:45→18:55)
[2018-04-11] MEDS: HYDROmorphone 2 MG/1 ML VIAL IV PRN ×4 (03:10→22:31)
[2018-04-11] MEDS: ENOXAPARIN 40 MG/0.4 ML SYRINGE SUBCUT SCH ×2 (03:13→14:13)
[2018-04-11] MEDS: methIMAzole 10 MG TABLET PO SCH (09:25)
[2018-04-11] MEDS: ASPIRIN CHEW 81 MG TABLET PO SCH (09:25)
[2018-04-11] MEDS: GABAPENTIN 400 MG CAPSULE PO SCH ×3 (09:25→21:04)
[2018-04-11] MEDS: LOSARTAN 25 MG TABLET PO SCH (09:26)
[2018-04-11] MEDS: LANSOPRAZOLE ODT 30 MG TABLET PER TUBE SCH (09:26)
[2018-04-11] MEDS: INSULIN REGULAR 100 UNIT/ML SUBCUT SCH ×4 (10:26→21:04)
[2018-04-11] MEDS: ATORVASTATIN 40 MG TABLET PO SCH (21:04)
[2018-04-11] MEDS: INSULIN GLARGINE 100 UNIT/ML SUBCUT SCH (21:05)
[2018-04-12] MEDS: PROPRANOLOL 40 MG TABLET PO SCH ×4 (01:04→17:30)
[2018-04-12] MEDS: ENOXAPARIN 40 MG/0.4 ML SYRINGE SUBCUT SCH ×2 (01:05→13:18)
[2018-04-12 04:29] LABS: Basophils % 0.2 % (0.0-0.8); Eosinophils % 0.2 % (0.00-10.9); Hematocrit 29.9 VOL% (35.7-47.0); Hemoglobin 9.4 GM/DL (12.0-16.0); Immature Granulocytes % 0.7 %; Immature Granulocytes Absolute 0.12 #; Lymphocytes # 1.9 10*3/uL (1.4-4.0); Lymphocytes % 10.9 % (21.3-54.2); Mean Corpuscular HGB Conc 31.4 GM/DL (32-36); Mean Corpuscular Hemoglobin 25 PG (27-34); Mean Corpuscular Volume 79.5 FL (87-102); Mean Platelet Volume 9.6 FL (9.6-12.0); Monocytes # 1.5 10*3/uL (0.11-0.8); Monocytes % 8.3 % (1.7-12.7); Neutrophils % 79.7 % (38.7-73.9); Platelet Count 457 T/CUMM (130-400); Red Blood Count 3.76 MC/CUMM (3.8-5.5); Red Cell Distribution Width 13.9 % (9.3-17.3); White Blood Count 17.6 T/CUMM (4-12)
[2018-04-12 04:57] LABS: Calcium 9.2 MG/DL (8.5-10.1); Hypochromasia 1+; Osmolality,Calculated 269.2 MOS/KG (273-304); Potassium 2.9 MMOL/L (3.5-5.1)
[2018-04-12 04:58] LABS: Microcytosis 1+
[2018-04-12] MEDS: POTASSIUM CHLORIDE RIDER 10 MEQ in PREMIX 1 EACH IV PRN ×4 (06:39→11:05)
[2018-04-12] MEDS ORDERED: VANCOMYCIN INJ 1,000 MG in SODIUM CHLORIDE 0.9% 250 ML IV ONE (09:54)
[2018-04-12] MEDS: INSULIN REGULAR 100 UNIT/ML SUBCUT SCH ×4 (10:12→21:43)
[2018-04-12] MEDS: LOSARTAN 25 MG TABLET PO SCH (10:14)
[2018-04-12] MEDS: POTASSIUM CHLORIDE 20 MEQ TABLET PO SCH (10:14)
[2018-04-12] MEDS: methIMAzole 10 MG TABLET PO SCH (10:14)
[2018-04-12] MEDS: LANSOPRAZOLE ODT 30 MG TABLET PER TUBE SCH (10:14)
[2018-04-12] MEDS: GABAPENTIN 400 MG CAPSULE PO SCH ×3 (10:14→21:43)
[2018-04-12] MEDS: ASPIRIN CHEW 81 MG TABLET PO SCH (10:14)
[2018-04-12] MEDS ORDERED: HEPARIN 5,000 UNIT/1 ML VIAL ONE (10:39)
[2018-04-12] MEDS ORDERED: TISSUE ADHESIVE 1 EACH APPLICATOR TOP ONE (10:39)
[2018-04-12] MEDS ORDERED: BUPIVACAINE 0.5% 50 ML VIAL ONE (10:40)
[2018-04-12] MEDS ORDERED: VANCOMYCIN 500 MG VIAL ONE ×2 (10:40→12:20)
[2018-04-12] MEDS ORDERED: LIDOCAINE 1% 20 ML VIAL ONE (10:40)
[2018-04-12] MEDS ORDERED: THROMBIN TOPICAL (RECOMBINANT) 5,000 UNIT VIAL TOP ONE (10:40)
[2018-04-12] MEDS ORDERED: ceFAZolin 1,000 MG VIAL ONE (12:09)
[2018-04-12] MEDS ORDERED: PROPOFOL 200 MG/20 ML VIAL IV ONE (14:12)
[2018-04-12] MEDS ORDERED: fentaNYL 100 MCG/2 ML VIAL ONE (14:13)
[2018-04-12] MEDS ORDERED: SEVOFLURANE 1 UNIT/15 MINUTE INH ONE (14:13)
[2018-04-12] MEDS ORDERED: MIDAZOLAM 2 MG/2 ML VIAL ONE (14:13)
[2018-04-12] MEDS ORDERED: ESMOLOL 100 MG/10 ML VIAL IV ONE (14:13)
[2018-04-12] MEDS ORDERED: GLYCOPYRROLATE 0.4 MG/2 ML VIAL ONE (14:13)
[2018-04-12] MEDS ORDERED: NEOSTIGMINE 10 MG/10 ML VIAL ONE (14:14)
[2018-04-12] MEDS ORDERED: SUCCINYLCHOLINE 200 MG/10 ML VIAL ONE (14:14)
[2018-04-12] MEDS ORDERED: ROCURONIUM 100 MG/10 ML VIAL IV ONE (14:14)
[2018-04-12] MEDS ORDERED: PHENYLEPHRINE 1 MG/10 ML SYRINGE IV ONE (14:14)
[2018-04-12] MEDS ORDERED: HEPARIN 10,000 UNIT/10 ML VIAL ONE (14:15)
[2018-04-12 15:02] LABS: Apearance,Urine Slightly Hazy (Clear); Bacteria,Urine Occasional /HPF (Few); Bilirubin,Urine Negative (Negative); Blood, Urine Moderate mg/dL (Negative); Glucose,Urine (UA) 50 mg/dL (Negative); Ketones,Urine 80 mg/dL (Negative); Mucus,Urine Few /LPF (Occasional); Nitrite,Urine Negative (Negative); Protein,Urine 100 MG/DL; RBC,Urine <1 /HPF (0-4); Squamous Epithelial Cell,Urine Occasional /HPF (0-10); Urine Color Yellow (Yellow); Urine Specific Gravity 1.015 (1.001-1.035); WBC,Urine 5 /HPF (0-6)
[2018-04-12] MEDS ORDERED: HYDROmorphone 2 MG/1 ML VIAL IV PRN (15:07)
[2018-04-12] MEDS ORDERED: ONDANSETRON 4 MG/2 ML VIAL IV PRN (15:07)
[2018-04-12] MEDS: LACTATED RINGERS 1,000 ML IV SCH ×3 (16:21→22:35)
[2018-04-12] MEDS: INSULIN GLARGINE 100 UNIT/ML SUBCUT SCH (21:42)
[2018-04-12] MEDS: ATORVASTATIN 40 MG TABLET PO SCH (21:43)
[2018-04-13] MEDS: PROPRANOLOL 40 MG TABLET PO SCH ×5 (00:27→18:06)
[2018-04-13] MEDS: LACTATED RINGERS 1,000 ML IV SCH (05:35)
[2018-04-13 06:37] LABS: Basophils % 0.2 % (0.0-0.8); Eosinophils % 0.3 % (0.00-10.9); Hematocrit 24.7 VOL% (35.7-47.0); Hematocrit 24.8 VOL% (35.7-47.0); Hemoglobin 7.6 GM/DL (12.0-16.0); Hemoglobin 7.7 GM/DL (12.0-16.0); Immature Granulocytes Absolute 0.15 #; Lymphocytes # 1.5 10*3/uL (1.4-4.0); Lymphocytes % 9.8 % (21.3-54.2); Mean Corpuscular HGB Conc 30.8 GM/DL (32-36); Mean Corpuscular Hemoglobin 25 PG (27-34); Mean Corpuscular Volume 79.9 FL (87-102); Mean Platelet Volume 9.3 FL (9.6-12.0); Monocytes # 1.7 10*3/uL (0.11-0.8); Monocytes % 11.1 % (1.7-12.7); Neutrophils # 12.2 10*3/uL (1.4-7.4); Neutrophils % 77.6 % (38.7-73.9); Platelet Count 383 T/CUMM (130-400); Red Blood Count 3.09 MC/CUMM (3.8-5.5); Red Cell Distribution Width 14.2 % (9.3-17.3); White Blood Count 15.7 T/CUMM (4-12)
[2018-04-13 06:53] LABS: Calcium 7.9 MG/DL (8.5-10.1); Osmolality,Calculated 278.5 MOS/KG (273-304); Potassium 2.8 MMOL/L (3.5-5.1)
[2018-04-13 07:03] LABS: Band Neutrophils 17 % (0-10); Lymphocytes 9 % (20-55); Segmented Neutrophils 70 % (50-85); Total Cells Counted 100
[2018-04-13 07:04] LABS: Anisocytosis 2+
[2018-04-13 07:05] LABS: Hypochromasia Slight; Platelet Estimate Normal
[2018-04-13] MEDS: POTASSIUM CHLORIDE 20 MEQ TABLET PO PRN ×3 (07:40→12:42)
[2018-04-13] MEDS ORDERED: SODIUM CHLORIDE 0.9% 1,000 ML IV PRN (07:57)
[2018-04-13] MEDS: methIMAzole 10 MG TABLET PO SCH (09:36)
[2018-04-13] MEDS: ASPIRIN CHEW 81 MG TABLET PO SCH (09:36)
[2018-04-13] MEDS: APIXABAN 5 MG TABLET PO SCH ×2 (09:36→21:56)
[2018-04-13] MEDS: GABAPENTIN 400 MG CAPSULE PO SCH ×3 (09:37→21:56)
[2018-04-13] MEDS: POTASSIUM CHLORIDE 20 MEQ TABLET PO SCH ×2 (09:37→21:56)
[2018-04-13] MEDS: LANSOPRAZOLE ODT 30 MG TABLET PER TUBE SCH (09:37)
[2018-04-13] MEDS: LOSARTAN 25 MG TABLET PO SCH (09:37)
[2018-04-13] MEDS: INSULIN REGULAR 100 UNIT/ML SUBCUT SCH ×4 (09:40→21:57)
[2018-04-13] MEDS: cefTRIAXone 1,000 MG in SYRINGE 1 EACH IV SCH (09:57)
[2018-04-13] MEDS: ACETAMINOPHEN 325 MG TABLET PO PRN ×2 (16:09→21:56)
[2018-04-13] MEDS: INSULIN GLARGINE 100 UNIT/ML SUBCUT SCH (21:55)
[2018-04-13] MEDS: ATORVASTATIN 40 MG TABLET PO SCH (21:56)
[2018-04-14] MEDS: PROPRANOLOL 40 MG TABLET PO SCH ×4 (03:54→17:04)
[2018-04-14 06:26] LABS: Basophils % 0.1 % (0.0-0.8); Eosinophils # 0.1 10*3/uL (0.0-0.87); Eosinophils % 0.3 % (0.00-10.9); Hemoglobin 7.4 GM/DL (12.0-16.0); Immature Granulocytes % 2.8 %; Immature Granulocytes Absolute 0.54 #; Lymphocytes # 1.7 10*3/uL (1.4-4.0); Lymphocytes % 8.7 % (21.3-54.2); Mean Corpuscular HGB Conc 30.8 GM/DL (32-36); Mean Corpuscular Hemoglobin 25 PG (27-34); Mean Corpuscular Volume 81.1 FL (87-102); Mean Platelet Volume 9.7 FL (9.6-12.0); Monocytes # 1.9 10*3/uL (0.11-0.8); Monocytes % 9.9 % (1.7-12.7); Neutrophils % 78.2 % (38.7-73.9); Platelet Count 394 T/CUMM (130-400); Red Blood Count 2.96 MC/CUMM (3.8-5.5); Red Cell Distribution Width 14.6 % (9.3-17.3); White Blood Count 19.2 T/CUMM (4-12)
[2018-04-14 06:59] LABS: Hypochromasia Slight; Lymphocytes 6 % (20-55); Platelet Estimate Normal; Segmented Neutrophils 91 % (50-85); Total Cells Counted 100
[2018-04-14 07:13] LABS: Calcium 7.7 MG/DL (8.5-10.1); Osmolality,Calculated 271.8 MOS/KG (273-304); Potassium 3.4 MMOL/L (3.5-5.1)
[2018-04-14] MEDS: INSULIN REGULAR 100 UNIT/ML SUBCUT SCH ×4 (08:40→20:46)
[2018-04-14] MEDS: GABAPENTIN 400 MG CAPSULE PO SCH ×3 (10:26→20:46)
[2018-04-14] MEDS: APIXABAN 5 MG TABLET PO SCH ×2 (10:27→20:46)
[2018-04-14] MEDS: methIMAzole 10 MG TABLET PO SCH (10:27)
[2018-04-14] MEDS: LOSARTAN 25 MG TABLET PO SCH (10:27)
[2018-04-14] MEDS: LANSOPRAZOLE ODT 30 MG TABLET PER TUBE SCH (10:27)
[2018-04-14] MEDS: ASPIRIN CHEW 81 MG TABLET PO SCH (10:27)
[2018-04-14] MEDS: POTASSIUM CHLORIDE 20 MEQ TABLET PO SCH ×2 (10:28→20:46)
[2018-04-14] MEDS: cefTRIAXone 1,000 MG in SYRINGE 1 EACH IV SCH (10:28)
[2018-04-14] MEDS: ATORVASTATIN 40 MG TABLET PO SCH (20:46)
[2018-04-14] MEDS: INSULIN GLARGINE 100 UNIT/ML SUBCUT SCH (20:46)
[2018-04-15] MEDS: PROPRANOLOL 40 MG TABLET PO SCH ×4 (00:50→18:28)
[2018-04-15 04:38] LABS: Basophils % 0.2 % (0.0-0.8); Eosinophils # 0.1 10*3/uL (0.0-0.87); Eosinophils % 0.6 % (0.00-10.9); Hematocrit 22.7 VOL% (35.7-47.0); Immature Granulocytes % 3.4 %; Immature Granulocytes Absolute 0.63 #; Lymphocytes % 10.6 % (21.3-54.2); Mean Corpuscular HGB Conc 30.8 GM/DL (32-36); Mean Corpuscular Hemoglobin 25 PG (27-34); Mean Corpuscular Volume 80.8 FL (87-102); Mean Platelet Volume 9.6 FL (9.6-12.0); Monocytes # 1.6 10*3/uL (0.11-0.8); Monocytes % 8.8 % (1.7-12.7); Neutrophils # 14.2 10*3/uL (1.4-7.4); Neutrophils % 76.4 % (38.7-73.9); Platelet Count 452 T/CUMM (130-400); Red Blood Count 2.81 MC/CUMM (3.8-5.5); Red Cell Distribution Width 14.8 % (9.3-17.3); White Blood Count 18.5 T/CUMM (4-12)
[2018-04-15 04:53] LABS: Calcium 7.5 MG/DL (8.5-10.1); Potassium 3.7 MMOL/L (3.5-5.1)
[2018-04-15 05:10] LABS: Band Neutrophils 1 % (0-10); Eosinophils 1 % (0-10); Lymphocytes 5 % (20-55); Segmented Neutrophils 87 % (50-85); Total Cells Counted 100
[2018-04-15 05:11] LABS: Anisocytosis 1+; Hypochromasia 1+; Platelet Estimate Adequate
[2018-04-15] MEDS: INSULIN REGULAR 100 UNIT/ML SUBCUT SCH ×4 (08:14→21:29)
[2018-04-15] MEDS ORDERED: NITROFURANTOIN MACRO/MONO 100 MG CAPSULE PO SCH (09:30)
[2018-04-15] MEDS: GABAPENTIN 400 MG CAPSULE PO SCH ×3 (09:41→21:29)
[2018-04-15] MEDS: APIXABAN 5 MG TABLET PO SCH ×2 (09:41→21:29)
[2018-04-15] MEDS: LANSOPRAZOLE ODT 30 MG TABLET PER TUBE SCH (09:42)
[2018-04-15] MEDS: ASPIRIN CHEW 81 MG TABLET PO SCH (09:42)
[2018-04-15] MEDS: POTASSIUM CHLORIDE 20 MEQ TABLET PO SCH ×2 (09:42→21:29)
[2018-04-15] MEDS: methIMAzole 10 MG TABLET PO SCH (09:42)
[2018-04-15] MEDS: LOSARTAN 25 MG TABLET PO SCH (09:42)
[2018-04-15] MEDS: cefTRIAXone 1,000 MG in SYRINGE 1 EACH IV SCH (09:45)
[2018-04-15] MEDS: AMPICILLIN 500 MG CAPSULE PO SCH ×2 (13:04→21:29)
[2018-04-15] MEDS: ATORVASTATIN 40 MG TABLET PO SCH (21:29)
[2018-04-15] MEDS: INSULIN GLARGINE 100 UNIT/ML SUBCUT SCH (21:30)
[2018-04-16] MEDS ORDERED: SODIUM CHLORIDE 0.9% 250 ML IV ONE (00:02)
[2018-04-16 00:18] LABS: Albumin 1.4 G/DL (3.4-5.0); Calcium 7.5 MG/DL (8.5-10.1); Potassium 3.8 MMOL/L (3.5-5.1)
[2018-04-16 00:31] LABS: Basophils % 0.1 % (0.0-0.8); Eosinophils # 0.1 10*3/uL (0.0-0.87); Eosinophils % 0.3 % (0.00-10.9); Immature Granulocytes % 2.4 %; Lymphocytes # 2.2 10*3/uL (1.4-4.0); Lymphocytes % 10.4 % (21.3-54.2); Mean Corpuscular HGB Conc 30.5 GM/DL (32-36); Mean Corpuscular Hemoglobin 25 PG (27-34); Mean Corpuscular Volume 81.4 FL (87-102); Monocytes # 2.4 10*3/uL (0.11-0.8); Monocytes % 11.8 % (1.7-12.7); Neutrophils # 15.5 10*3/uL (1.4-7.4); Platelet Count 479 T/CUMM (130-400); Red Blood Count 2.58 MC/CUMM (3.8-5.5); White Blood Count 20.7 T/CUMM (4-12)
[2018-04-16 00:43] LABS: Hemoglobin 6.4 GM/DL (12.0-16.0)
[2018-04-16] MEDS: PROPRANOLOL 40 MG TABLET PO SCH ×5 (00:54→23:45)
[2018-04-16 03:03] LABS: Lymphocytes 7 % (20-55); Platelet Estimate Normal; Polychromasia Few; Segmented Neutrophils 81 % (50-85); Total Cells Counted 100
[2018-04-16] MEDS ORDERED: SODIUM CHLORIDE 0.9% 1,000 ML IV PRN (07:00)
[2018-04-16] MEDS: INSULIN REGULAR 100 UNIT/ML SUBCUT SCH ×4 (08:12→20:45)
[2018-04-16] MEDS ORDERED: BISACODYL 5 MG TABLET PO ONE (09:01)
[2018-04-16] MEDS: methIMAzole 10 MG TABLET PO SCH ×3 (09:56→20:41)
[2018-04-16] MEDS: POTASSIUM CHLORIDE 20 MEQ TABLET PO SCH ×2 (09:56→20:45)
[2018-04-16] MEDS: LOSARTAN 25 MG TABLET PO SCH (09:56)
[2018-04-16] MEDS: APIXABAN 5 MG TABLET PO SCH ×2 (09:57→20:45)
[2018-04-16] MEDS: GABAPENTIN 400 MG CAPSULE PO SCH ×3 (09:57→20:52)
[2018-04-16] MEDS: LANSOPRAZOLE ODT 30 MG TABLET PER TUBE SCH (09:57)
[2018-04-16] MEDS: ASPIRIN CHEW 81 MG TABLET PO SCH (09:57)
[2018-04-16] MEDS: AMPICILLIN 500 MG CAPSULE PO SCH ×3 (10:02→20:40)
[2018-04-16] MEDS: MULTIVITAMIN (INTRINSIC) CAPSULE PO SCH ×2 (10:02→20:41)
[2018-04-16] MEDS: ATORVASTATIN 40 MG TABLET PO SCH (20:41)
[2018-04-16] MEDS: ACETAMINOPHEN 325 MG TABLET PO PRN (20:41)
[2018-04-16] MEDS: INSULIN GLARGINE 100 UNIT/ML SUBCUT SCH (20:46)
[2018-04-17 04:06] LABS: Basophils % 0.1 % (0.0-0.8); Eosinophils # 0.1 10*3/uL (0.0-0.87); Eosinophils % 0.3 % (0.00-10.9); Hematocrit 19.7 VOL% (35.7-47.0); Immature Granulocytes % 1.2 %; Immature Granulocytes Absolute 0.25 #; Lymphocytes # 1.9 10*3/uL (1.4-4.0); Lymphocytes % 9.3 % (21.3-54.2); Mean Corpuscular Hemoglobin 25 PG (27-34); Mean Corpuscular Volume 81.4 FL (87-102); Mean Platelet Volume 9.7 FL (9.6-12.0); Monocytes % 9.8 % (1.7-12.7); Neutrophils # 16.1 10*3/uL (1.4-7.4); Neutrophils % 79.3 % (38.7-73.9); Platelet Count 470 T/CUMM (130-400); Red Blood Count 2.42 MC/CUMM (3.8-5.5); Red Cell Distribution Width 15.2 % (9.3-17.3); White Blood Count 20.4 T/CUMM (4-12)
[2018-04-17 04:14] LABS: Hemoglobin 6.1 GM/DL (12.0-16.0)
[2018-04-17 04:22] LABS: Calcium 7.9 MG/DL (8.5-10.1); Osmolality,Calculated 272.1 MOS/KG (273-304); Potassium 3.9 MMOL/L (3.5-5.1)
[2018-04-17 04:56] LABS: Band Neutrophils 1 % (0-10); Hypochromasia 1+; Lymphocytes 6 % (20-55); Ovalocytes Slight; Platelet Estimate Adequate; Segmented Neutrophils 82 % (50-85); Total Cells Counted 100
[2018-04-17] MEDS: PROPRANOLOL 40 MG TABLET PO SCH ×3 (06:26→17:46)
[2018-04-17] MEDS: ACETAMINOPHEN 325 MG TABLET PO PRN ×2 (06:26→20:16)
[2018-04-17] MEDS: INSULIN REGULAR 100 UNIT/ML SUBCUT SCH ×4 (07:45→20:17)
[2018-04-17] MEDS: GABAPENTIN 400 MG CAPSULE PO SCH ×3 (09:57→20:15)
[2018-04-17] MEDS: MULTIVITAMIN (INTRINSIC) CAPSULE PO SCH ×2 (09:57→20:16)
[2018-04-17] MEDS: LANSOPRAZOLE ODT 30 MG TABLET PER TUBE SCH (09:57)
[2018-04-17] MEDS: ASPIRIN CHEW 81 MG TABLET PO SCH (09:57)
[2018-04-17] MEDS: AMPICILLIN 500 MG CAPSULE PO SCH ×3 (09:57→20:16)
[2018-04-17] MEDS: APIXABAN 5 MG TABLET PO SCH ×2 (09:57→20:17)
[2018-04-17] MEDS: POTASSIUM CHLORIDE 20 MEQ TABLET PO SCH ×2 (09:58→20:16)
[2018-04-17] MEDS: methIMAzole 10 MG TABLET PO SCH ×3 (09:58→20:18)
[2018-04-17] MEDS: LOSARTAN 25 MG TABLET PO SCH (09:58)
[2018-04-17] MEDS: ATORVASTATIN 40 MG TABLET PO SCH (20:15)
[2018-04-17] MEDS: INSULIN GLARGINE 100 UNIT/ML SUBCUT SCH (20:17)
[2018-04-18] MEDS: PROPRANOLOL 40 MG TABLET PO SCH ×4 (01:33→18:10)
[2018-04-18 05:16] LABS: Basophils % 0.1 % (0.0-0.8); Eosinophils % 0.2 % (0.00-10.9); Hematocrit 23.2 VOL% (35.7-47.0); Immature Granulocytes % 1.9 %; Immature Granulocytes Absolute 0.43 #; Lymphocytes # 1.6 10*3/uL (1.4-4.0); Lymphocytes % 7.3 % (21.3-54.2); Mean Corpuscular HGB Conc 30.2 GM/DL (32-36); Mean Corpuscular Hemoglobin 25 PG (27-34); Mean Corpuscular Volume 81.1 FL (87-102); Monocytes # 1.8 10*3/uL (0.11-0.8); Monocytes % 7.9 % (1.7-12.7); Neutrophils # 18.2 10*3/uL (1.4-7.4); Neutrophils % 82.6 % (38.7-73.9); Platelet Count 569 T/CUMM (130-400); Red Blood Count 2.86 MC/CUMM (3.8-5.5); Red Cell Distribution Width 15.6 % (9.3-17.3); White Blood Count 22.1 T/CUMM (4-12)
[2018-04-18 05:42] LABS: Lymphocytes 8 % (20-55); Segmented Neutrophils 88 % (50-85); Total Cells Counted 100
[2018-04-18 05:45] LABS: Hypochromasia 2+; Platelet Estimate Increased
[2018-04-18 05:50] LABS: Calcium 8.1 MG/DL (8.5-10.1); Osmolality,Calculated 274.7 MOS/KG (273-304); Potassium 4.3 MMOL/L (3.5-5.1)
[2018-04-18] MEDS: ACETAMINOPHEN 325 MG TABLET PO PRN (06:10)
[2018-04-18] MEDS: INSULIN REGULAR 100 UNIT/ML SUBCUT SCH ×3 (07:25→16:22)
[2018-04-18] MEDS: AMPICILLIN 500 MG CAPSULE PO SCH ×3 (08:45→20:49)
[2018-04-18] MEDS: LOSARTAN 25 MG TABLET PO SCH (08:45)
[2018-04-18] MEDS: APIXABAN 5 MG TABLET PO SCH ×2 (08:46→20:51)
[2018-04-18] MEDS: ASPIRIN CHEW 81 MG TABLET PO SCH (08:46)
[2018-04-18] MEDS: methIMAzole 10 MG TABLET PO SCH ×3 (08:47→20:49)
[2018-04-18] MEDS: POTASSIUM CHLORIDE 20 MEQ TABLET PO SCH ×2 (08:47→20:50)
[2018-04-18] MEDS: MULTIVITAMIN (INTRINSIC) CAPSULE PO SCH ×2 (08:47→20:49)
[2018-04-18] MEDS: GABAPENTIN 400 MG CAPSULE PO SCH ×3 (08:47→20:49)
[2018-04-18] MEDS: LANSOPRAZOLE ODT 30 MG TABLET PER TUBE SCH (08:47)
[2018-04-18] MEDS: ATORVASTATIN 40 MG TABLET PO SCH (20:51)
[2018-04-18] MEDS: INSULIN GLARGINE 100 UNIT/ML SUBCUT SCH (20:51)
[2018-04-19] MEDS: INSULIN REGULAR 100 UNIT/ML SUBCUT SCH ×5 (02:10→21:43)
[2018-04-19] MEDS: PROPRANOLOL 40 MG TABLET PO SCH ×4 (02:11→17:52)
[2018-04-19 04:38] LABS: Basophils % 0.2 % (0.0-0.8); Eosinophils % 0.2 % (0.00-10.9); Hematocrit 23.1 VOL% (35.7-47.0); Hemoglobin 6.9 GM/DL (12.0-16.0); Immature Granulocytes % 1.3 %; Immature Granulocytes Absolute 0.28 #; Lymphocytes # 1.8 10*3/uL (1.4-4.0); Lymphocytes % 8.2 % (21.3-54.2); Mean Corpuscular HGB Conc 29.9 GM/DL (32-36); Mean Corpuscular Hemoglobin 24 PG (27-34); Mean Corpuscular Volume 81.6 FL (87-102); Mean Platelet Volume 9.4 FL (9.6-12.0); Monocytes # 1.7 10*3/uL (0.11-0.8); Monocytes % 7.8 % (1.7-12.7); Neutrophils # 18.3 10*3/uL (1.4-7.4); Neutrophils % 82.3 % (38.7-73.9); Platelet Count 654 T/CUMM (130-400); Red Blood Count 2.83 MC/CUMM (3.8-5.5); Red Cell Distribution Width 15.7 % (9.3-17.3); White Blood Count 22.2 T/CUMM (4-12)
[2018-04-19 05:05] LABS: Potassium 4.7 MMOL/L (3.5-5.1)
[2018-04-19 05:06] LABS: Band Neutrophils 1 % (0-10); Hypochromasia 1+; Lymphocytes 5 % (20-55); Platelet Estimate Increased; Segmented Neutrophils 87 % (50-85); Total Cells Counted 100
[2018-04-19] MEDS: ASPIRIN CHEW 81 MG TABLET PO SCH (08:37)
[2018-04-19] MEDS: methIMAzole 10 MG TABLET PO SCH ×3 (08:37→21:42)
[2018-04-19] MEDS: GABAPENTIN 400 MG CAPSULE PO SCH ×3 (08:37→21:42)
[2018-04-19] MEDS: LOSARTAN 25 MG TABLET PO SCH (08:37)
[2018-04-19] MEDS: AMPICILLIN 500 MG CAPSULE PO SCH ×3 (08:37→21:42)
[2018-04-19] MEDS: POTASSIUM CHLORIDE 20 MEQ TABLET PO SCH ×2 (08:37→21:42)
[2018-04-19] MEDS: MULTIVITAMIN (INTRINSIC) CAPSULE PO SCH ×2 (08:38→21:43)
[2018-04-19] MEDS: LANSOPRAZOLE ODT 30 MG TABLET PER TUBE SCH (08:38)
[2018-04-19] MEDS: APIXABAN 5 MG TABLET PO SCH ×2 (08:38→21:43)
[2018-04-19] MEDS ORDERED: LOSARTAN 25 MG TABLET PO SCH (14:00)
[2018-04-19] MEDS ORDERED: guaiFENesin 200 MG/10 ML UDCUP PO PRN (15:48)
[2018-04-19] MEDS ORDERED: PHENOL 1.4% THROAT SPRAY 177 ML BOTTLE PO PRN (15:49)
[2018-04-19] MEDS: INSULIN GLARGINE 100 UNIT/ML SUBCUT SCH (21:43)
[2018-04-19] MEDS: ATORVASTATIN 40 MG TABLET PO SCH (21:43)
[2018-04-19] MEDS: ACETAMINOPHEN 325 MG TABLET PO PRN (21:44)
[2018-04-20] MEDS: PROPRANOLOL 40 MG TABLET PO SCH ×3 (01:11→12:05)
[2018-04-20 04:20] LABS: Basophils % 0.2 % (0.0-0.8); Eosinophils # 0.1 10*3/uL (0.0-0.87); Eosinophils % 0.4 % (0.00-10.9); Hematocrit 21.9 VOL% (35.7-47.0); Hemoglobin 6.5 GM/DL (12.0-16.0); Immature Granulocytes % 1.3 %; Immature Granulocytes Absolute 0.26 #; Lymphocytes # 1.9 10*3/uL (1.4-4.0); Lymphocytes % 9.9 % (21.3-54.2); Mean Corpuscular HGB Conc 29.7 GM/DL (32-36); Mean Corpuscular Hemoglobin 24 PG (27-34); Mean Platelet Volume 9.2 FL (9.6-12.0); Monocytes # 1.8 10*3/uL (0.11-0.8); Neutrophils # 15.4 10*3/uL (1.4-7.4); Neutrophils % 79.2 % (38.7-73.9); Platelet Count 553 T/CUMM (130-400); Red Blood Count 2.67 MC/CUMM (3.8-5.5); Red Cell Distribution Width 15.7 % (9.3-17.3); White Blood Count 19.4 T/CUMM (4-12)
[2018-04-20 05:00] LABS: Calcium 7.9 MG/DL (8.5-10.1); Osmolality,Calculated 272.8 MOS/KG (273-304); Potassium 4.4 MMOL/L (3.5-5.1)
[2018-04-20] MEDS: INSULIN REGULAR 100 UNIT/ML SUBCUT SCH ×2 (09:45→12:58)
[2018-04-20] MEDS: AMPICILLIN 500 MG CAPSULE PO SCH (09:46)
[2018-04-20] MEDS: MULTIVITAMIN (INTRINSIC) CAPSULE PO SCH (09:46)
[2018-04-20] MEDS: LANSOPRAZOLE ODT 30 MG TABLET PER TUBE SCH (09:47)
[2018-04-20] MEDS: POTASSIUM CHLORIDE 20 MEQ TABLET PO SCH (09:47)
[2018-04-20] MEDS: APIXABAN 5 MG TABLET PO SCH (09:47)
[2018-04-20] MEDS: methIMAzole 10 MG TABLET PO SCH (09:47)
[2018-04-20] MEDS: ASPIRIN CHEW 81 MG TABLET PO SCH (10:14)
[2018-04-20] MEDS: GABAPENTIN 400 MG CAPSULE PO SCH (10:15)
[2018-04-20 11:59] VITALS: BP 91/52
== END 2018-04-20 15:07 | disposition home health service (06) | DRG 169 ==
LOC: EDUNIT# → EDBD → N.ED 14:07 → SUATTDRO 21:18 → N.EDINP 21:18 → N.3E 22:07 → N.ICU 04-07 09:17 → N.3E 04-10 18:13 → N.CC 04-16 01:38 → N.3E 04-17 12:15
PROVIDERS: ADMIT Surgery; ATTEND Surgery
PROC: IRORORE (2018-04-08 08:35)

== ENCOUNTER 2018-04-20 16:06 | Inpatient (IN) ==
[2018-04-20] MEDS ORDERED: ACETAMINOPHEN 325 MG TABLET PO PRN (17:38)
[2018-04-20] MEDS ORDERED: CLINDAMYCIN INJ 600 MG in PREMIX 1 EACH IV STA (17:38)
[2018-04-20] MEDS ORDERED: GLUCAGON 1 MG VIAL IM PRN (17:38)
[2018-04-20] MEDS ORDERED: DEXTROSE 50% 25 GM/50 ML VIAL IV PRN (17:38)
[2018-04-20] MEDS ORDERED: MORPHINE 4 MG/1 ML VIAL ONE (19:13)
[2018-04-20] MEDS: ONDANSETRON 4 MG/2 ML VIAL IV PRN (19:24)
[2018-04-20] MEDS ORDERED: MORPHINE 4 MG/1 ML VIAL IV STA (19:27)
[2018-04-20] MEDS ORDERED: ONDANSETRON 4 MG/2 ML VIAL IV STA (19:27)
[2018-04-20 19:44] LABS: Calcium 7.4 MG/DL (8.5-10.1); Osmolality,Calculated 272.4 MOS/KG (273-304); Potassium 4.1 MMOL/L (3.5-5.1)
[2018-04-20] MEDS: INSULIN GLARGINE 100 UNIT/ML SUBCUT SCH (20:30)
[2018-04-20] MEDS: ATORVASTATIN 40 MG TABLET PO SCH (20:30)
[2018-04-20] MEDS: PROPRANOLOL 40 MG TABLET PO SCH (20:30)
[2018-04-20] MEDS: GABAPENTIN 400 MG CAPSULE PO SCH (20:30)
[2018-04-20] MEDS: APIXABAN 5 MG TABLET PO SCH (20:30)
[2018-04-20] MEDS: AMPICILLIN 500 MG CAPSULE PO SCH (20:30)
[2018-04-20] MEDS: MULTIVITAMIN (INTRINSIC) CAPSULE PO SCH (20:30)
[2018-04-21] MEDS: PROPRANOLOL 40 MG TABLET PO SCH ×4 (01:09→19:22)
[2018-04-21] MEDS ORDERED: INFLUENZA VIRUS VACCINE 0.5 ML SYRINGE IM ONE (09:00)
[2018-04-21] MEDS ORDERED: LOSARTAN 25 MG TABLET PO SCH (09:00)
[2018-04-21] MEDS: ASPIRIN CHEW 81 MG TABLET PO SCH (09:04)
[2018-04-21] MEDS: GABAPENTIN 400 MG CAPSULE PO SCH ×3 (09:05→22:44)
[2018-04-21] MEDS: PANTOPRAZOLE 40 MG TABLET PO SCH (09:05)
[2018-04-21] MEDS: APIXABAN 5 MG TABLET PO SCH (09:05)
[2018-04-21] MEDS: MULTIVITAMIN (INTRINSIC) CAPSULE PO SCH ×2 (09:05→22:44)
[2018-04-21] MEDS: methIMAzole 10 MG TABLET PO SCH (09:05)
[2018-04-21] MEDS: AMPICILLIN 500 MG CAPSULE PO SCH (11:25)
[2018-04-21 11:35] LABS: ABG Base Excess 2.4 MMOL/L (-2.5-2.5); ABG HCO3 26.6 MMOL/L (20-26); ABG PCO2 37.4 MM HG (35-48); ABG PH 7.456 (7.35-7.45); Allen Test Positive
[2018-04-21 13:00] LABS: Basophils % 0.2 % (0.0-0.8); Eosinophils # 0.1 10*3/uL (0.0-0.87); Eosinophils % 0.3 % (0.00-10.9); Hematocrit 20.9 VOL% (35.7-47.0); Immature Granulocytes Absolute 0.16 #; Lymphocytes # 1.5 10*3/uL (1.4-4.0); Lymphocytes % 9.3 % (21.3-54.2); Mean Corpuscular HGB Conc 29.7 GM/DL (32-36); Mean Corpuscular Hemoglobin 25 PG (27-34); Mean Corpuscular Volume 82.6 FL (87-102); Mean Platelet Volume 9.4 FL (9.6-12.0); Monocytes # 1.3 10*3/uL (0.11-0.8); Monocytes % 8.2 % (1.7-12.7); Neutrophils # 13.1 10*3/uL (1.4-7.4); Platelet Count 575 T/CUMM (130-400); Red Blood Count 2.53 MC/CUMM (3.8-5.5); Red Cell Distribution Width 15.8 % (9.3-17.3); White Blood Count 16.2 T/CUMM (4-12)
[2018-04-21 13:02] LABS: Hemoglobin 6.2 GM/DL (12.0-16.0)
[2018-04-21] MEDS ORDERED: LACTATED RINGERS 500 ML IV ONE (13:14)
[2018-04-21 13:27] LABS: Albumin 1.4 G/DL (3.4-5.0); Bilirubin,Total 1.3 MG/DL (0.2-1.0); Calcium 8.2 MG/DL (8.5-10.1); Osmolality,Calculated 272.1 MOS/KG (273-304); Potassium 4.5 MMOL/L (3.5-5.1); Total Protein 7.6 G/DL (6.4-8.3)
[2018-04-21] MEDS ORDERED: SODIUM CHLORIDE 0.9% 1,000 ML IV PRN ×2 (13:36→22:22)
[2018-04-21] MEDS: PIPERACILLIN/TAZOBACTAM 3,375 MG in SODIUM CHLORIDE 0.9% 100 ML IV SCH ×2 (16:05→23:07)
[2018-04-21] MEDS: POTASSIUM CHLORIDE INJ 20 MEQ in LACTATED RINGERS 1,000 ML IV SCH ×2 (16:05→20:40)
[2018-04-21] MEDS: INSULIN REGULAR 100 UNIT/ML SUBCUT SCH ×2 (19:21→22:45)
[2018-04-21] MEDS: ATORVASTATIN 40 MG TABLET PO SCH (22:45)
[2018-04-21] MEDS: INSULIN GLARGINE 100 UNIT/ML SUBCUT SCH (22:45)
[2018-04-22] MEDS: PROPRANOLOL 40 MG TABLET PO SCH ×5 (01:19→23:19)
[2018-04-22] MEDS: POTASSIUM CHLORIDE INJ 20 MEQ in LACTATED RINGERS 1,000 ML IV SCH ×3 (04:25→21:40)
[2018-04-22 05:42] LABS: Basophils % 0.1 % (0.0-0.8); Eosinophils # 0.1 10*3/uL (0.0-0.87); Eosinophils % 0.5 % (0.00-10.9); Hematocrit 20.6 VOL% (35.7-47.0); Immature Granulocytes % 1.3 %; Immature Granulocytes Absolute 0.18 #; Lymphocytes # 1.6 10*3/uL (1.4-4.0); Lymphocytes % 11.3 % (21.3-54.2); Mean Corpuscular HGB Conc 30.6 GM/DL (32-36); Mean Corpuscular Hemoglobin 25 PG (27-34); Mean Corpuscular Volume 82.7 FL (87-102); Mean Platelet Volume 9.3 FL (9.6-12.0); Monocytes # 1.3 10*3/uL (0.11-0.8); NRBC # 0.02 10*3/uL; Neutrophils # 11.1 10*3/uL (1.4-7.4); Neutrophils % 77.8 % (38.7-73.9); Platelet Count 488 T/CUMM (130-400); Red Blood Count 2.49 MC/CUMM (3.8-5.5); Red Cell Distribution Width 15.5 % (9.3-17.3); White Blood Count 14.3 T/CUMM (4-12)
[2018-04-22 05:55] LABS: Hemoglobin 6.3 GM/DL (12.0-16.0)
[2018-04-22] MEDS ORDERED: FAMOTIDINE 20 MG TABLET PO ONE (06:00)
[2018-04-22] MEDS: PIPERACILLIN/TAZOBACTAM 3,375 MG in SODIUM CHLORIDE 0.9% 100 ML IV SCH ×3 (06:00→23:19)
[2018-04-22 06:13] LABS: Albumin 1.4 G/DL (3.4-5.0); Bilirubin,Total 0.5 MG/DL (0.2-1.0); Calcium 7.5 MG/DL (8.5-10.1); Potassium 3.8 MMOL/L (3.5-5.1); Total Protein 6.7 G/DL (6.4-8.3)
[2018-04-22] MEDS: INSULIN REGULAR 100 UNIT/ML SUBCUT SCH ×4 (09:23→20:58)
[2018-04-22] MEDS: methIMAzole 10 MG TABLET PO SCH (09:24)
[2018-04-22] MEDS: MULTIVITAMIN (INTRINSIC) CAPSULE PO SCH ×2 (09:24→20:53)
[2018-04-22] MEDS: PANTOPRAZOLE 40 MG TABLET PO SCH (09:24)
[2018-04-22] MEDS: ASPIRIN CHEW 81 MG TABLET PO SCH (09:24)
[2018-04-22] MEDS: GABAPENTIN 400 MG CAPSULE PO SCH ×3 (09:24→20:53)
[2018-04-22] MEDS ORDERED: MIDAZOLAM 2 MG/2 ML VIAL ONE (10:55)
[2018-04-22] MEDS ORDERED: SEVOFLURANE 1 UNIT/15 MINUTE INH ONE (10:55)
[2018-04-22] MEDS ORDERED: PROPOFOL 200 MG/20 ML VIAL IV ONE (10:55)
[2018-04-22] MEDS ORDERED: HYDROmorphone 2 MG/1 ML VIAL ONE (10:55)
[2018-04-22] MEDS ORDERED: fentaNYL 100 MCG/2 ML VIAL ONE (10:55)
[2018-04-22] MEDS ORDERED: LACTATED RINGERS 1,000 ML IV ONE (10:56)
[2018-04-22] MEDS ORDERED: KETOROLAC 30 MG/1 ML VIAL ONE (10:56)
[2018-04-22] MEDS ORDERED: PHENYLEPHRINE 1 MG/10 ML SYRINGE IV ONE (10:56)
[2018-04-22 11:16] LABS: Hematocrit 24.5 VOL% (35.7-47.0); Hemoglobin 7.7 GM/DL (12.0-16.0)
[2018-04-22] MEDS ORDERED: SODIUM CHLORIDE 0.9% 1,000 ML IV PRN (13:13)
[2018-04-22 14:04] LABS: Hematocrit 23.9 VOL% (35.7-47.0); Hemoglobin 7.5 GM/DL (12.0-16.0)
[2018-04-22] MEDS: ATORVASTATIN 40 MG TABLET PO SCH (20:53)
[2018-04-22] MEDS: INSULIN GLARGINE 100 UNIT/ML SUBCUT SCH (20:58)
[2018-04-22 21:17] LABS: Hematocrit 23.4 VOL% (35.7-47.0); Hemoglobin 7.3 GM/DL (12.0-16.0)
[2018-04-23] MEDS: PIPERACILLIN/TAZOBACTAM 3,375 MG in SODIUM CHLORIDE 0.9% 100 ML IV SCH ×3 (06:01→21:26)
[2018-04-23] MEDS: POTASSIUM CHLORIDE INJ 20 MEQ in LACTATED RINGERS 1,000 ML IV SCH (06:24)
[2018-04-23] MEDS: PROPRANOLOL 40 MG TABLET PO SCH ×3 (07:15→18:31)
[2018-04-23] MEDS: INSULIN REGULAR 100 UNIT/ML SUBCUT SCH ×4 (07:42→20:20)
[2018-04-23 08:00] LABS: Hematocrit 32.3 VOL% (35.7-47.0)
[2018-04-23 08:05] LABS: Hemoglobin 10.5 GM/DL (12.0-16.0)
[2018-04-23] MEDS: ASPIRIN CHEW 81 MG TABLET PO SCH (08:19)
[2018-04-23] MEDS: MULTIVITAMIN (INTRINSIC) CAPSULE PO SCH ×2 (08:19→20:38)
[2018-04-23] MEDS: GABAPENTIN 400 MG CAPSULE PO SCH ×3 (08:20→20:13)
[2018-04-23] MEDS: PANTOPRAZOLE 40 MG TABLET PO SCH (08:20)
[2018-04-23] MEDS: methIMAzole 10 MG TABLET PO SCH (08:20)
[2018-04-23 08:21] LABS: Calcium 7.7 MG/DL (8.5-10.1); Osmolality,Calculated 271.8 MOS/KG (273-304)
[2018-04-23 08:26] LABS: Basophils % 0.2 % (0.0-0.8); Eosinophils # 0.2 10*3/uL (0.0-0.87); Eosinophils % 1.6 % (0.00-10.9); Hematocrit 32.1 VOL% (35.7-47.0); Immature Granulocytes Absolute 0.12 #; Lymphocytes # 1.1 10*3/uL (1.4-4.0); Lymphocytes % 8.9 % (21.3-54.2); Mean Corpuscular HGB Conc 32.4 GM/DL (32-36); Mean Corpuscular Hemoglobin 27 PG (27-34); Mean Corpuscular Volume 83.6 FL (87-102); Mean Platelet Volume 9.8 FL (9.6-12.0); Monocytes # 0.8 10*3/uL (0.11-0.8); Monocytes % 6.6 % (1.7-12.7); NRBC # 0.03 10*3/uL; Neutrophils # 10.1 10*3/uL (1.4-7.4); Neutrophils % 81.7 % (38.7-73.9); Red Cell Distribution Width 14.3 % (9.3-17.3); White Blood Count 12.4 T/CUMM (4-12)
[2018-04-23 08:36] LABS: Platelet Count 322 T/CUMM (130-400)
[2018-04-23 08:37] LABS: Hemoglobin 10.4 GM/DL (12.0-16.0); Red Blood Count 3.84 MC/CUMM (3.8-5.5)
[2018-04-23 09:03] LABS: Band Neutrophils 1 % (0-10); Hypochromasia 1+; Lymphocytes 6 % (20-55); Microcytosis Slight; Ovalocytes Slight; Segmented Neutrophils 90 % (50-85); Total Cells Counted 100
[2018-04-23 14:06] LABS: Hematocrit 33.1 VOL% (35.7-47.0); Hemoglobin 10.9 GM/DL (12.0-16.0)
[2018-04-23] MEDS: ATORVASTATIN 40 MG TABLET PO SCH (20:13)
[2018-04-23] MEDS: ONDANSETRON 4 MG/2 ML VIAL IV PRN (20:13)
[2018-04-23] MEDS: INSULIN GLARGINE 100 UNIT/ML SUBCUT SCH (20:20)
[2018-04-24] MEDS: PROPRANOLOL 40 MG TABLET PO SCH ×4 (01:49→18:06)
[2018-04-24] MEDS: PIPERACILLIN/TAZOBACTAM 3,375 MG in SODIUM CHLORIDE 0.9% 100 ML IV SCH (06:23)
[2018-04-24] MEDS: ENOXAPARIN 40 MG/0.4 ML SYRINGE SUBCUT SCH (08:22)
[2018-04-24] MEDS: methIMAzole 10 MG TABLET PO SCH (08:22)
[2018-04-24] MEDS: ASPIRIN CHEW 81 MG TABLET PO SCH (08:22)
[2018-04-24] MEDS: GABAPENTIN 400 MG CAPSULE PO SCH ×3 (08:22→20:05)
[2018-04-24] MEDS: MULTIVITAMIN (INTRINSIC) CAPSULE PO SCH ×2 (08:22→20:05)
[2018-04-24] MEDS: INSULIN REGULAR 100 UNIT/ML SUBCUT SCH ×4 (08:22→20:50)
[2018-04-24] MEDS: PANTOPRAZOLE 40 MG TABLET PO SCH (08:22)
[2018-04-24] MEDS: ATORVASTATIN 40 MG TABLET PO SCH (20:05)
[2018-04-24] MEDS: INSULIN GLARGINE 100 UNIT/ML SUBCUT SCH (20:50)
[2018-04-25] MEDS: PROPRANOLOL 40 MG TABLET PO SCH ×4 (00:30→17:37)
[2018-04-25] MEDS: INSULIN REGULAR 100 UNIT/ML SUBCUT SCH ×4 (08:57→20:26)
[2018-04-25] MEDS: ENOXAPARIN 40 MG/0.4 ML SYRINGE SUBCUT SCH (08:58)
[2018-04-25] MEDS: ASPIRIN CHEW 81 MG TABLET PO SCH (08:58)
[2018-04-25] MEDS: methIMAzole 10 MG TABLET PO SCH (08:58)
[2018-04-25] MEDS: PANTOPRAZOLE 40 MG TABLET PO SCH (08:58)
[2018-04-25] MEDS: GABAPENTIN 400 MG CAPSULE PO SCH ×3 (08:58→20:26)
[2018-04-25] MEDS: MULTIVITAMIN (INTRINSIC) CAPSULE PO SCH ×2 (08:58→20:26)
[2018-04-25] MEDS: glyBURIDE 2.5 MG TABLET PO SCH (10:28)
[2018-04-25] MEDS: metFORMIN 500 MG TABLET PO SCH (17:37)
[2018-04-25] MEDS: ATORVASTATIN 40 MG TABLET PO SCH (20:26)
[2018-04-25] MEDS: INSULIN GLARGINE 100 UNIT/ML SUBCUT SCH (20:27)
[2018-04-26] MEDS: PROPRANOLOL 40 MG TABLET PO SCH ×4 (00:35→18:11)
[2018-04-26 04:35] LABS: Basophils % 0.3 % (0.0-0.8); Eosinophils # 0.1 10*3/uL (0.0-0.87); Eosinophils % 1.3 % (0.00-10.9); Hematocrit 34.8 VOL% (35.7-47.0); Hemoglobin 10.9 GM/DL (12.0-16.0); Immature Granulocytes % 0.6 %; Immature Granulocytes Absolute 0.06 #; Lymphocytes # 1.2 10*3/uL (1.4-4.0); Lymphocytes % 12.3 % (21.3-54.2); Mean Corpuscular HGB Conc 31.3 GM/DL (32-36); Mean Corpuscular Hemoglobin 27 PG (27-34); Mean Corpuscular Volume 85.9 FL (87-102); Monocytes # 0.7 10*3/uL (0.11-0.8); Monocytes % 6.6 % (1.7-12.7); Neutrophils # 7.8 10*3/uL (1.4-7.4); Neutrophils % 78.9 % (38.7-73.9); Platelet Count 427 T/CUMM (130-400); Red Blood Count 4.05 MC/CUMM (3.8-5.5); Red Cell Distribution Width 14.9 % (9.3-17.3); White Blood Count 9.9 T/CUMM (4-12)
[2018-04-26 04:58] LABS: Osmolality,Calculated 279.4 MOS/KG (273-304); Potassium 3.6 MMOL/L (3.5-5.1)
[2018-04-26] MEDS: metFORMIN 500 MG TABLET PO SCH ×2 (09:23→18:08)
[2018-04-26] MEDS: PANTOPRAZOLE 40 MG TABLET PO SCH (09:23)
[2018-04-26] MEDS: INSULIN REGULAR 100 UNIT/ML SUBCUT SCH ×4 (09:23→21:47)
[2018-04-26] MEDS: GABAPENTIN 400 MG CAPSULE PO SCH ×3 (09:24→21:47)
[2018-04-26] MEDS: ASPIRIN CHEW 81 MG TABLET PO SCH (09:24)
[2018-04-26] MEDS: methIMAzole 10 MG TABLET PO SCH (09:24)
[2018-04-26] MEDS: ENOXAPARIN 40 MG/0.4 ML SYRINGE SUBCUT SCH (09:24)
[2018-04-26] MEDS: MULTIVITAMIN (INTRINSIC) CAPSULE PO SCH ×2 (09:24→21:47)
[2018-04-26] MEDS: glyBURIDE 2.5 MG TABLET PO SCH (09:47)
[2018-04-26] MEDS: LOSARTAN 25 MG TABLET PO SCH (14:00)
[2018-04-26] MEDS: ATORVASTATIN 40 MG TABLET PO SCH (21:47)
[2018-04-26] MEDS: INSULIN GLARGINE 100 UNIT/ML SUBCUT SCH (21:48)
[2018-04-27] MEDS: PROPRANOLOL 40 MG TABLET PO SCH ×5 (00:36→23:45)
[2018-04-27] MEDS: INSULIN REGULAR 100 UNIT/ML SUBCUT SCH ×4 (08:46→21:06)
[2018-04-27] MEDS: GABAPENTIN 400 MG CAPSULE PO SCH ×3 (08:47→21:01)
[2018-04-27] MEDS: PANTOPRAZOLE 40 MG TABLET PO SCH (08:47)
[2018-04-27] MEDS: ASPIRIN CHEW 81 MG TABLET PO SCH (08:47)
[2018-04-27] MEDS: LOSARTAN 25 MG TABLET PO SCH (08:47)
[2018-04-27] MEDS: methIMAzole 10 MG TABLET PO SCH (08:47)
[2018-04-27] MEDS: glyBURIDE 2.5 MG TABLET PO SCH (08:47)
[2018-04-27] MEDS: ENOXAPARIN 40 MG/0.4 ML SYRINGE SUBCUT SCH (08:47)
[2018-04-27] MEDS: metFORMIN 500 MG TABLET PO SCH ×2 (08:47→16:58)
[2018-04-27] MEDS: MULTIVITAMIN (INTRINSIC) CAPSULE PO SCH ×2 (08:47→21:01)
[2018-04-27] MEDS: ATORVASTATIN 40 MG TABLET PO SCH (21:01)
[2018-04-27] MEDS: INSULIN GLARGINE 100 UNIT/ML SUBCUT SCH (21:06)
[2018-04-28] MEDS: PROPRANOLOL 40 MG TABLET PO SCH ×3 (07:03→17:44)
[2018-04-28] MEDS: INSULIN REGULAR 100 UNIT/ML SUBCUT SCH ×4 (08:42→21:11)
[2018-04-28] MEDS: glyBURIDE 2.5 MG TABLET PO SCH (08:43)
[2018-04-28] MEDS: metFORMIN 500 MG TABLET PO SCH ×2 (08:44→17:12)
[2018-04-28] MEDS: LOSARTAN 25 MG TABLET PO SCH (08:44)
[2018-04-28] MEDS: PANTOPRAZOLE 40 MG TABLET PO SCH (08:44)
[2018-04-28] MEDS: GABAPENTIN 400 MG CAPSULE PO SCH ×3 (08:44→21:11)
[2018-04-28] MEDS: ASPIRIN CHEW 81 MG TABLET PO SCH (08:44)
[2018-04-28] MEDS: methIMAzole 10 MG TABLET PO SCH (08:45)
[2018-04-28] MEDS: MULTIVITAMIN (INTRINSIC) CAPSULE PO SCH ×2 (08:45→21:11)
[2018-04-28] MEDS: ENOXAPARIN 40 MG/0.4 ML SYRINGE SUBCUT SCH (08:45)
[2018-04-28] MEDS ORDERED: PHENOL 1.4% THROAT SPRAY 177 ML BOTTLE PO PRN (16:06)
[2018-04-28] MEDS: ATORVASTATIN 40 MG TABLET PO SCH (21:11)
[2018-04-28] MEDS: INSULIN GLARGINE 100 UNIT/ML SUBCUT SCH (21:11)
[2018-04-29] MEDS: PROPRANOLOL 40 MG TABLET PO SCH ×3 (01:51→11:50)
[2018-04-29] MEDS: ENOXAPARIN 40 MG/0.4 ML SYRINGE SUBCUT SCH (08:15)
[2018-04-29] MEDS: INSULIN REGULAR 100 UNIT/ML SUBCUT SCH ×2 (08:15→11:50)
[2018-04-29] MEDS: LOSARTAN 25 MG TABLET PO SCH (08:16)
[2018-04-29] MEDS: ASPIRIN CHEW 81 MG TABLET PO SCH (08:16)
[2018-04-29] MEDS: MULTIVITAMIN (INTRINSIC) CAPSULE PO SCH (08:16)
[2018-04-29] MEDS: PANTOPRAZOLE 40 MG TABLET PO SCH (08:16)
[2018-04-29] MEDS: methIMAzole 10 MG TABLET PO SCH (08:16)
[2018-04-29] MEDS: metFORMIN 500 MG TABLET PO SCH (08:16)
[2018-04-29] MEDS: GABAPENTIN 400 MG CAPSULE PO SCH ×2 (08:16→15:01)
[2018-04-29] MEDS: glyBURIDE 2.5 MG TABLET PO SCH (08:19)
[2018-04-29 11:00] VITALS: BP 138/75
== END 2018-04-29 15:10 | DRG 305 ==
LOC: N.ED 16:06 → N.EDINP 17:37 → N.3E 18:50
PROVIDERS: ADMIT Surgery; ATTEND Surgery

== ENCOUNTER 2019-12-30 10:07 | Inpatient (IN) ==
[2019-12-30] MEDS ORDERED: NALOXONE 0.4 MG/ML VIAL ONE (10:18)
[2019-12-30] MEDS ORDERED: NALOXONE 0.4 MG/ML VIAL IV STA (11:10)
[2019-12-30] MEDS ORDERED: cefTRIAXone 2,000 MG in SODIUM CHLORIDE 0.9% 100 ML IV ONE (11:17)
[2019-12-30] MEDS ORDERED: SODIUM CHLORIDE 0.9% 1,000 ML IV STA (11:17)
[2019-12-30] MEDS ORDERED: cefTRIAXone 1,000 MG VIAL ONE (11:18)
[2019-12-30 11:37] LABS: Bilirubin,Urine Negative (Negative); Blood, Urine Small mg/dL (Negative); Calcium Oxalate Crystals,Urine Occasional /HPF (Few); Glucose,Urine (UA) >=500 mg/dL (Negative); Ketones,Urine 80 mg/dL (Negative); Nitrite,Urine Negative (Negative); Protein,Urine 100 MG/DL; RBC,Urine 1 /HPF (0-4); Urine Appearance CLEAR (Clear); Urine Color Yellow (Yellow); Urine Urobilinogen < 2.0 EU/DL (0.2-1.0)
[2019-12-30 11:38] LABS: Bacteria,Urine Occasional /HPF (Few); Mucus,Urine Occasional /LPF (Occasional)
[2019-12-30 11:41] LABS: Barbiturates Screen,Urine Negative (Negative); Benzodiazepines Screen,Urine Negative (Negative); Cannabinoid Screen,Urine Negative (Negative); Opiate Screen,Urine Negative (Negative); Phencyclidine Screen,Urine Negative (Negative)
[2019-12-30 11:46] LABS: ABG Base Excess -26.9 MMOL/L (-2.5-2.5); ABG HCO3 2.9 MMOL/L (20-26); ABG Oxygen Saturation 98.7 % (95-100); ABG PO2 185.2 MM HG (80-95); ABG TCO2 3.3 MMOL/L (23-27)
[2019-12-30] MEDS ORDERED: INSULIN REGULAR 100 UNIT/ML IV STA (11:47)
[2019-12-30 11:49] LABS: ABG PCO2 12.5 MM HG (35-48); ABG PH 6.984 (7.35-7.45)
[2019-12-30] MEDS ORDERED: SODIUM BICARBONATE 50 MEQ/50 ML VIAL IV STA (11:49)
[2019-12-30] MEDS ORDERED: SODIUM PHOSPHATE INJ 26 MMOL in SODIUM CHLORIDE 0.9% 250 ML IV PRN (11:59)
[2019-12-30] MEDS ORDERED: ALBUTEROL 2.5 MG/3 ML NEB RESP TX PRN (11:59)
[2019-12-30] MEDS ORDERED: SODIUM BICARB INJ 100 MEQ in STERILE WATER INJ 400 ML IV PRN (11:59)
[2019-12-30] MEDS ORDERED: MAGNESIUM SULF RIDER 4 GM in PREMIX 1 EACH IV PRN (11:59)
[2019-12-30] MEDS ORDERED: DEXTROSE 50% 25 GM/50 ML VIAL IV PRN ×2 (11:59)
[2019-12-30] MEDS ORDERED: MAGNESIUM SULF RIDER 2 GM in PREMIX 1 EACH IV PRN (11:59)
[2019-12-30] MEDS ORDERED: SODIUM CHLORIDE 0.9% 1,000 ML IV ONE ×2 (11:59→12:50)
[2019-12-30] MEDS ORDERED: MIDAZOLAM 10 MG/2 ML VIAL ONE (12:10)
[2019-12-30 12:27] LABS: Alanine Aminotransferase 17 U/L (13-56); Albumin 3.3 G/DL (3.4-5.0); Alkaline Phosphatase 165 U/L (45-117); Aspartate Amino Transferase 12 U/L (0-37); Blood Urea Nitrogen 36 MG/DL (7-18); Calcium 8.6 MG/DL (8.5-10.1); Estimated Glom Filtration Rate 53 ML/MIN; Osmolality,Calculated 309.7 MOS/KG (273-304); Total Protein 7.6 G/DL (6.4-8.3)
[2019-12-30] MEDS ORDERED: ROCURONIUM 100 MG/10 ML VIAL IV ONE (12:29)
[2019-12-30 12:30] LABS: Glucose 583 MG/DL (74-106)
[2019-12-30 13:14] LABS: Basophils # 0.1 10*3/uL (0.0-0.2); Basophils % 0.4 % (0.0-0.8); Eosinophils % 0.1 % (0.00-10.9); Hematocrit 46.5 VOL% (35.7-47.0); Hemoglobin 13.8 GM/DL (12.0-16.0); Immature Granulocytes Absolute 0.69 #; Lymphocytes % 8.7 % (21.3-54.2); Mean Corpuscular HGB Conc 29.7 GM/DL (32-36); Mean Corpuscular Volume 94.3 FL (87-102); Mean Platelet Volume 10.2 FL (9.6-12.0); Monocytes % 6.5 % (1.7-12.7); NRBC # 0.12 10*3/uL; Neutrophils % 81.3 % (38.7-73.9); Platelet Count 407 T/CUMM (130-400); Red Blood Count 4.93 MC/CUMM (3.8-5.5); Red Cell Distribution Width 14.8 % (9.3-17.3); White Blood Count 22.9 T/CUMM (4-12)
[2019-12-30 13:19] LABS: Albumin 3.2 G/DL (3.4-5.0); Calcium 8.9 MG/DL (8.5-10.1); Thyroid Stimulating Hormone 0.072 uIU/ml (0.358-3.74)
[2019-12-30 13:38] LABS: Atypical Lymphocytes Few; Band Neutrophils 2 % (0-10); Hypochromasia 1+; Lymphocytes 13 % (20-55); Metamyelocytes 1 %; Nucleated Red Blood Cells 1 (0-5); Platelet Estimate Normal; Schistocytes Slight; Segmented Neutrophils 80 % (50-85); Total Cells Counted 100
[2019-12-30 13:53] LABS: ABG Base Excess -23.5 MMOL/L (-2.5-2.5); ABG HCO3 8.3 MMOL/L (20-26); ABG Oxygen Saturation 99.1 % (95-100); ABG PCO2 32.4 MM HG (35-48); ABG TCO2 7.5 MMOL/L (23-27); Allen Test Positive; Pt O2 Delivery Device Ventilator
[2019-12-30 13:55] LABS: ABG PH 6.989 (7.35-7.45)
[2019-12-30] MEDS ORDERED: SODIUM BICARBONATE 50 MEQ/50 ML VIAL IV ONE ×2 (14:00→16:37)
[2019-12-30] MEDS: PANTOPRAZOLE 40 MG VIAL IV SCH (14:05)
[2019-12-30] MEDS: VANCOMYCIN INJ 1,500 MG in SODIUM CHLORIDE 0.9% 500 ML IV SCH (14:58)
[2019-12-30] MEDS: INSULIN REGULAR DRIP 100 ML IV SCH (15:18)
[2019-12-30] MEDS: SODIUM CHLORIDE 0.9% 1,000 ML IV SCH ×5 (15:23→17:33)
[2019-12-30] MEDS: PIPERACILLIN/TAZOBACTAM 3,375 MG in SODIUM CHLORIDE 0.9% 100 ML IV SCH ×2 (15:46→23:08)
[2019-12-30 16:25] LABS: ABG HCO3 7.7 MMOL/L (20-26); ABG Oxygen Saturation 98.4 % (95-100); ABG PCO2 27.5 MM HG (35-48); ABG TCO2 6.5 MMOL/L (23-27); Allen Test Positive; Pt O2 Delivery Device Ventilator
[2019-12-30 16:27] LABS: Calcium 7.2 MG/DL (8.5-10.1); Osmolality,Calculated 325.1 MOS/KG (273-304)
[2019-12-30 16:27] LABS: ABG PH 6.994 (7.35-7.45)
[2019-12-30] MEDS ORDERED: SODIUM CHLORIDE 0.9% 1,000 ML IV SCH ×2 (16:59→17:50)
[2019-12-30 17:33] LABS: Salicylate 8.9 MG/DL (2.8-20)
[2019-12-30 17:34] LABS: Acetaminophen < 2.0 UG/ML (10-30)
[2019-12-30 18:05] LABS: ABG Base Excess -19.4 MMOL/L (-2.5-2.5); ABG HCO3 10.3 MMOL/L (20-26); ABG Oxygen Saturation 99.6 % (95-100); ABG PH 7.216 (7.35-7.45); ABG TCO2 6.7 MMOL/L (23-27); Allen Test Positive; Pt O2 Delivery Device Ventilator
[2019-12-30 18:07] LABS: ABG PCO2 17.9 MM HG (35-48)
[2019-12-30 20:48] LABS: Calcium 7.2 MG/DL (8.5-10.1); Osmolality,Calculated 322.4 MOS/KG (273-304)
[2019-12-30 21:16] LABS: ABG Base Excess -18.1 MMOL/L (-2.5-2.5); ABG HCO3 6.4 MMOL/L (20-26); ABG PO2 310.7 MM HG (80-95); ABG TCO2 6.9 MMOL/L (23-27); Allen Test Positive; Pt O2 Delivery Device Ventilator
[2019-12-30 21:19] LABS: ABG PCO2 14.3 MM HG (35-48)
[2019-12-30] MEDS: POTASSIUM CHLORIDE RIDER 20 MEQ in PREMIX 1 EACH IV PRN (22:57)
[2019-12-31 00:37] LABS: Calcium 7.4 MG/DL (8.5-10.1)
[2019-12-31] MEDS: SODIUM CHLORIDE 0.45% 1,000 ML IV SCH ×4 (00:55→18:47)
[2019-12-31] MEDS: DEXTROSE 5% NACL 0.45% 1,000 ML IV SCH ×2 (03:27→08:34)
[2019-12-31 04:37] LABS: ABG PCO2 26.5 MM HG (35-48); ABG PH 7.386 (7.35-7.45); ABG TCO2 14.4 MMOL/L (23-27); Allen Test Positive; Pt O2 Delivery Device Ventilator
[2019-12-31] MEDS ORDERED: SODIUM CHLORIDE 0.45% 1,000 ML IV SCH (04:59)
[2019-12-31 05:05] LABS: Basophils % 0.1 % (0.0-0.8); Hematocrit 31.3 VOL% (35.7-47.0); Hemoglobin 9.9 GM/DL (12.0-16.0); Immature Granulocytes % 0.6 %; Immature Granulocytes Absolute 0.07 #; Lymphocytes # 0.6 10*3/uL (1.4-4.0); Lymphocytes % 5.8 % (21.3-54.2); Mean Corpuscular HGB Conc 31.6 GM/DL (32-36); Mean Corpuscular Volume 87.2 FL (87-102); Mean Platelet Volume 9.6 FL (9.6-12.0); Monocytes % 11.5 % (1.7-12.7); NRBC # 0.02 10*3/uL; Platelet Count 207 T/CUMM (130-400); Red Blood Count 3.59 MC/CUMM (3.8-5.5); Red Cell Distribution Width 14.9 % (9.3-17.3); White Blood Count 10.9 T/CUMM (4-12)
[2019-12-31 05:24] LABS: Alanine Aminotransferase 26 U/L (13-56); Albumin 2.1 G/DL (3.4-5.0); Alkaline Phosphatase 93 U/L (45-117); Aspartate Amino Transferase 27 U/L (0-37); Bilirubin,Total < 0.39 MG/DL (0.2-1.0); Blood Urea Nitrogen 23 MG/DL (7-18); Calcium 7.4 MG/DL (8.5-10.1); Estimated Glom Filtration Rate 51 ML/MIN; Glucose 183 MG/DL (74-106); Osmolality,Calculated 320.9 MOS/KG (273-304); Total Protein 5.6 G/DL (6.4-8.3)
[2019-12-31] MEDS: INSULIN REGULAR DRIP 100 ML IV SCH (05:39)
[2019-12-31] MEDS: POTASSIUM CHLORIDE RIDER 20 MEQ in PREMIX 1 EACH IV PRN ×3 (06:14→19:12)
[2019-12-31] MEDS ORDERED: LEVOTHYROXINE 100 MCG TABLET PO SCH (06:30)
[2019-12-31] MEDS: PIPERACILLIN/TAZOBACTAM 3,375 MG in SODIUM CHLORIDE 0.9% 100 ML IV SCH ×3 (08:02→23:21)
[2019-12-31] MEDS: POTASSIUM CHLORIDE RIDER 10 MEQ in PREMIX 1 EACH IV PRN (08:30)
[2019-12-31 09:32] LABS: ABG Base Excess -9.7 MMOL/L (-2.5-2.5); ABG HCO3 16.7 MMOL/L (20-26); ABG PH 7.318 (7.35-7.45); ABG TCO2 14.1 MMOL/L (23-27); Allen Test Positive; Pt O2 Delivery Device Ventilator
[2019-12-31 09:46] LABS: Calcium 7.4 MG/DL (8.5-10.1); Osmolality,Calculated 312.4 MOS/KG (273-304)
[2019-12-31] MEDS: INSULIN GLARGINE 100 UNIT/ML SUBCUT SCH (10:53)
[2019-12-31] MEDS: INSULIN REGULAR 100 UNIT/ML SUBCUT SCH ×4 (11:59→23:55)
[2019-12-31] MEDS: PANTOPRAZOLE 40 MG VIAL IV SCH (12:59)
[2019-12-31] MEDS: PROPRANOLOL 40 MG TABLET PO SCH ×2 (12:59→21:45)
[2019-12-31] MEDS: VANCOMYCIN INJ 1,500 MG in SODIUM CHLORIDE 0.9% 500 ML IV SCH (13:38)
[2019-12-31 16:54] LABS: Calcium 7.7 MG/DL (8.5-10.1)
[2019-12-31] MEDS: DEXMEDETOMIDINE 400 MCG in SODIUM CHLORIDE 0.9% 96 ML IV PRN (17:40)
[2020-01-01] MEDS: POTASSIUM CHLORIDE RIDER 20 MEQ in PREMIX 1 EACH IV PRN ×2 (00:22→06:10)
[2020-01-01] MEDS: DEXMEDETOMIDINE 400 MCG in SODIUM CHLORIDE 0.9% 96 ML IV PRN (00:23)
[2020-01-01] MEDS: SODIUM CHLORIDE 0.45% 1,000 ML IV SCH ×2 (02:22→02:50)
[2020-01-01] MEDS: POTASSIUM CHLORIDE RIDER 10 MEQ in PREMIX 1 EACH IV PRN (02:35)
[2020-01-01 05:06] LABS: ABG Base Excess -6.3 MMOL/L (-2.5-2.5); ABG HCO3 17.8 MMOL/L (20-26); ABG Oxygen Saturation 98.8 % (95-100); ABG PCO2 30.6 MM HG (35-48); ABG PH 7.383 (7.35-7.45); ABG PO2 286.7 MM HG (80-95); ABG TCO2 18.8 MMOL/L (23-27); Allen Test Positive; Pt O2 Delivery Device Ventilator
[2020-01-01 05:13] LABS: Basophils % 0.1 % (0.0-0.8); Hematocrit 29.8 VOL% (35.7-47.0); Hemoglobin 9.3 GM/DL (12.0-16.0); Immature Granulocytes % 0.3 %; Immature Granulocytes Absolute 0.03 #; Lymphocytes # 1.1 10*3/uL (1.4-4.0); Mean Corpuscular HGB Conc 31.2 GM/DL (32-36); Mean Corpuscular Volume 88.2 FL (87-102); Mean Platelet Volume 9.8 FL (9.6-12.0); Monocytes % 12.6 % (1.7-12.7); NRBC # 0.02 10*3/uL; Platelet Count 172 T/CUMM (130-400); Red Blood Count 3.38 MC/CUMM (3.8-5.5); Red Cell Distribution Width 15.8 % (9.3-17.3); White Blood Count 9.1 T/CUMM (4-12)
[2020-01-01 05:39] LABS: Calcium 7.9 MG/DL (8.5-10.1); Osmolality,Calculated 316.2 MOS/KG (273-304)
[2020-01-01] MEDS: INSULIN REGULAR 100 UNIT/ML SUBCUT SCH ×5 (05:51→20:57)
[2020-01-01] MEDS: LEVOTHYROXINE 100 MCG VIAL IV SCH (06:30)
[2020-01-01] MEDS: PIPERACILLIN/TAZOBACTAM 3,375 MG in SODIUM CHLORIDE 0.9% 100 ML IV SCH ×3 (06:35→22:04)
[2020-01-01] MEDS: INSULIN GLARGINE 100 UNIT/ML SUBCUT SCH (08:06)
[2020-01-01] MEDS: PROPRANOLOL 40 MG TABLET PO SCH ×2 (08:09→21:22)
[2020-01-01] MEDS ORDERED: propofoL 200 MG/20 ML VIAL IV ONE (10:30)
[2020-01-01] MEDS ORDERED: VECURONIUM 10 MG VIAL IV ONE (10:31)
[2020-01-01] MEDS ORDERED: ETOMIDATE 20 MG/10 ML VIAL IV ONE (10:31)
[2020-01-01] MEDS ORDERED: RACEPINEPHRINE 0.5 ML NEB RESP TX ONE ×3 (10:34→11:30)
[2020-01-01] MEDS: SODIUM CHLORIDE 23.4% CONC INJ 38.5 MEQ in STERILE WATER INJ 1,000 ML IV SCH (12:31)
[2020-01-01] MEDS: PANTOPRAZOLE 40 MG VIAL IV SCH (12:41)
[2020-01-01] MEDS: ACETAMINOPHEN 325 MG TABLET PO PRN (13:25)
[2020-01-01] MEDS: VANCOMYCIN INJ 1,500 MG in SODIUM CHLORIDE 0.9% 500 ML IV SCH (14:31)
[2020-01-01] MEDS ORDERED: ALBUTEROL/IPRATROPIUM 3 ML NEB RESP TX ONE (14:38)
[2020-01-01] MEDS: ALBUTEROL/IPRATROPIUM 3 ML NEB RESP TX SCH ×3 (14:53→23:47)
[2020-01-01] MEDS: APIXABAN 2.5 MG TABLET PO SCH (21:22)
[2020-01-01] MEDS: ONDANSETRON 4 MG/2 ML VIAL IV PRN (23:40)
[2020-01-02] MEDS: ACETAMINOPHEN 325 MG TABLET PO PRN ×2 (00:01→06:33)
[2020-01-02] MEDS: ALBUTEROL/IPRATROPIUM 3 ML NEB RESP TX SCH ×7 (00:10→23:31)
[2020-01-02] MEDS: INSULIN REGULAR 100 UNIT/ML SUBCUT SCH ×6 (00:38→21:30)
[2020-01-02] MEDS: SODIUM CHLORIDE 23.4% CONC INJ 38.5 MEQ in STERILE WATER INJ 1,000 ML IV SCH ×4 (01:33→20:24)
[2020-01-02 04:31] LABS: Basophils % 0.2 % (0.0-0.8); Eosinophils # 0.1 10*3/uL (0.0-0.87); Eosinophils % 0.8 % (0.00-10.9); Hematocrit 31.8 VOL% (35.7-47.0); Hemoglobin 10.2 GM/DL (12.0-16.0); Immature Granulocytes % 0.7 %; Immature Granulocytes Absolute 0.07 #; Lymphocytes # 1.4 10*3/uL (1.4-4.0); Lymphocytes % 14.9 % (21.3-54.2); Mean Corpuscular HGB Conc 32.1 GM/DL (32-36); Mean Corpuscular Volume 87.6 FL (87-102); Mean Platelet Volume 9.7 FL (9.6-12.0); Monocytes % 9.7 % (1.7-12.7); NRBC # 0.02 10*3/uL; Neutrophils % 73.7 % (38.7-73.9); Platelet Count 173 T/CUMM (130-400); Red Blood Count 3.63 MC/CUMM (3.8-5.5); Red Cell Distribution Width 15.5 % (9.3-17.3); White Blood Count 9.7 T/CUMM (4-12)
[2020-01-02 04:34] LABS: Allen Test Positive
[2020-01-02 04:35] LABS: ABG Base Excess -1.9 MMOL/L (-2.5-2.5); ABG HCO3 22.8 MMOL/L (20-26); ABG Oxygen Saturation 98.6 % (95-100); ABG PCO2 35.5 MM HG (35-48); ABG PH 7.406 (7.35-7.45); ABG TCO2 20.2 MMOL/L (23-27)
[2020-01-02 04:55] LABS: Calcium 8.4 MG/DL (8.5-10.1); Osmolality,Calculated 295.3 MOS/KG (273-304)
[2020-01-02 04:58] LABS: Prealbumin 11.9 MG/DL (20-40)
[2020-01-02] MEDS: POTASSIUM CHLORIDE RIDER 20 MEQ in PREMIX 1 EACH IV PRN ×2 (05:03→07:15)
[2020-01-02] MEDS: LEVOTHYROXINE 100 MCG VIAL IV SCH (06:30)
[2020-01-02] MEDS: PIPERACILLIN/TAZOBACTAM 3,375 MG in SODIUM CHLORIDE 0.9% 100 ML IV SCH ×3 (06:33→23:01)
[2020-01-02] MEDS: ONDANSETRON 4 MG/2 ML VIAL IV PRN (06:39)
[2020-01-02] MEDS: INSULIN GLARGINE 100 UNIT/ML SUBCUT SCH (08:09)
[2020-01-02] MEDS: APIXABAN 2.5 MG TABLET PO SCH ×2 (08:10→21:27)
[2020-01-02] MEDS: PROPRANOLOL 40 MG TABLET PO SCH ×2 (08:10→21:30)
[2020-01-02] MEDS ORDERED: POTASSIUM PHOSPHATE 30 MMOL in SODIUM CHLORIDE 0.9% 250 ML IV ONE (10:00)
[2020-01-02] MEDS: POTASSIUM CHLORIDE RIDER 10 MEQ in PREMIX 1 EACH IV PRN (12:35)
[2020-01-02] MEDS: PANTOPRAZOLE 40 MG VIAL IV SCH (12:53)
[2020-01-02] MEDS ORDERED: hydrALAZINE 20 MG/1 ML VIAL IV PRN (15:14)
[2020-01-02] MEDS: VANCOMYCIN INJ 1,500 MG in SODIUM CHLORIDE 0.9% 500 ML IV SCH (15:40)
[2020-01-03] MEDS: ALBUTEROL/IPRATROPIUM 3 ML NEB RESP TX SCH ×6 (03:31→23:50)
[2020-01-03 04:49] LABS: Basophils % 0.3 % (0.0-0.8); Eosinophils # 0.3 10*3/uL (0.0-0.87); Eosinophils % 2.8 % (0.00-10.9); Hematocrit 35.1 VOL% (35.7-47.0); Hemoglobin 11.1 GM/DL (12.0-16.0); Immature Granulocytes % 0.7 %; Immature Granulocytes Absolute 0.08 #; Lymphocytes # 1.4 10*3/uL (1.4-4.0); Lymphocytes % 12.7 % (21.3-54.2); Mean Corpuscular HGB Conc 31.6 GM/DL (32-36); Mean Corpuscular Volume 87.3 FL (87-102); Mean Platelet Volume 9.9 FL (9.6-12.0); Monocytes % 9.3 % (1.7-12.7); NRBC # 0.02 10*3/uL; Neutrophils % 74.2 % (38.7-73.9); Platelet Count 210 T/CUMM (130-400); Red Blood Count 4.02 MC/CUMM (3.8-5.5); Red Cell Distribution Width 15.2 % (9.3-17.3)
[2020-01-03 05:21] LABS: Calcium 8.5 MG/DL (8.5-10.1)
[2020-01-03] MEDS: POTASSIUM CHLORIDE RIDER 20 MEQ in PREMIX 1 EACH IV PRN ×3 (05:36→14:34)
[2020-01-03] MEDS: LEVOTHYROXINE 100 MCG VIAL IV SCH (06:39)
[2020-01-03] MEDS: PIPERACILLIN/TAZOBACTAM 3,375 MG in SODIUM CHLORIDE 0.9% 100 ML IV SCH ×3 (06:42→23:13)
[2020-01-03] MEDS: INSULIN REGULAR 100 UNIT/ML SUBCUT SCH ×4 (07:26→21:22)
[2020-01-03] MEDS: APIXABAN 2.5 MG TABLET PO SCH ×2 (08:05→21:22)
[2020-01-03] MEDS: PROPRANOLOL 40 MG TABLET PO SCH ×2 (08:05→21:22)
[2020-01-03] MEDS: INSULIN GLARGINE 100 UNIT/ML SUBCUT SCH (08:06)
[2020-01-03] MEDS: SODIUM CHLORIDE 23.4% CONC INJ 38.5 MEQ in STERILE WATER INJ 1,000 ML IV SCH (08:13)
[2020-01-03] MEDS ORDERED: LACTATED RINGERS 1,000 ML IV SCH (09:00)
[2020-01-03] MEDS: PANTOPRAZOLE 40 MG VIAL IV SCH (13:23)
[2020-01-03] MEDS: VANCOMYCIN INJ 1,500 MG in SODIUM CHLORIDE 0.9% 500 ML IV SCH ×2 (13:26→23:04)
[2020-01-03] MEDS: SODIUM BICARB INJ 50 MEQ in DEXTROSE 5% 1,000 ML IV SCH ×2 (14:28→21:26)
[2020-01-04] MEDS: ALBUTEROL/IPRATROPIUM 3 ML NEB RESP TX SCH ×6 (03:11→23:55)
[2020-01-04] MEDS: ACETAMINOPHEN 325 MG TABLET PO PRN (03:25)
[2020-01-04] MEDS: SODIUM BICARB INJ 50 MEQ in DEXTROSE 5% 1,000 ML IV SCH ×2 (05:52→14:20)
[2020-01-04] MEDS: LEVOTHYROXINE 100 MCG VIAL IV SCH (06:08)
[2020-01-04] MEDS: PIPERACILLIN/TAZOBACTAM 3,375 MG in SODIUM CHLORIDE 0.9% 100 ML IV SCH ×3 (06:11→23:17)
[2020-01-04] MEDS: APIXABAN 2.5 MG TABLET PO SCH ×2 (08:28→21:11)
[2020-01-04] MEDS: PROPRANOLOL 40 MG TABLET PO SCH ×2 (08:28→21:12)
[2020-01-04] MEDS: INSULIN REGULAR 100 UNIT/ML SUBCUT SCH ×4 (08:28→21:12)
[2020-01-04] MEDS: INSULIN GLARGINE 100 UNIT/ML SUBCUT SCH (08:29)
[2020-01-04 09:53] LABS: Calcium 8.2 MG/DL (8.5-10.1); Osmolality,Calculated 286.7 MOS/KG (273-304)
[2020-01-04] MEDS ORDERED: INSULIN LISPRO 100 UNIT/ML SUBCUT ONE (11:00)
[2020-01-04] MEDS: POTASSIUM CHLORIDE 20 MEQ TABLET PO SCH ×3 (11:26→16:34)
[2020-01-04] MEDS: PANTOPRAZOLE 40 MG VIAL IV SCH (12:39)
[2020-01-04] MEDS: VANCOMYCIN INJ 1,500 MG in SODIUM CHLORIDE 0.9% 500 ML IV SCH ×2 (13:50→23:17)
[2020-01-04] MEDS: GABAPENTIN 400 MG CAPSULE PO SCH ×2 (16:34→21:12)
[2020-01-04] MEDS ORDERED: EMPAGLIFLOZIN METFORMIN PO SCH (17:00)
[2020-01-04] MEDS ORDERED: APIXABAN 2.5 MG TABLET PO SCH (21:00)
[2020-01-05] MEDS: ALBUTEROL/IPRATROPIUM 3 ML NEB RESP TX SCH ×3 (03:14→11:30)
[2020-01-05 04:00] LABS: Basophils % 0.3 % (0.0-0.8); Eosinophils # 0.5 10*3/uL (0.0-0.87); Eosinophils % 4.6 % (0.00-10.9); Hematocrit 34.6 VOL% (35.7-47.0); Hemoglobin 11.1 GM/DL (12.0-16.0); Immature Granulocytes % 1.2 %; Immature Granulocytes Absolute 0.12 #; Lymphocytes # 1.8 10*3/uL (1.4-4.0); Lymphocytes % 18.1 % (21.3-54.2); Mean Corpuscular HGB Conc 32.1 GM/DL (32-36); Mean Corpuscular Volume 85.4 FL (87-102); Mean Platelet Volume 9.9 FL (9.6-12.0); Monocytes % 8.9 % (1.7-12.7); NRBC # 0.02 10*3/uL; Neutrophils % 66.9 % (38.7-73.9); Platelet Count 239 T/CUMM (130-400); Red Blood Count 4.05 MC/CUMM (3.8-5.5); Red Cell Distribution Width 14.6 % (9.3-17.3); White Blood Count 9.8 T/CUMM (4-12)
[2020-01-05 04:24] LABS: Eosinophils 4 % (0-10); Hypochromasia 1+; Lymphocytes 24 % (20-55); Microcytosis Slight; Platelet Estimate Adequate; Segmented Neutrophils 65 % (50-85); Total Cells Counted 100
[2020-01-05 04:25] LABS: Calcium 8.9 MG/DL (8.5-10.1); Osmolality,Calculated 286.1 MOS/KG (273-304)
[2020-01-05] MEDS: LEVOTHYROXINE 100 MCG VIAL IV SCH (06:11)
[2020-01-05] MEDS: PIPERACILLIN/TAZOBACTAM 3,375 MG in SODIUM CHLORIDE 0.9% 100 ML IV SCH (06:14)
[2020-01-05] MEDS: INSULIN REGULAR 100 UNIT/ML SUBCUT SCH ×2 (08:32→12:05)
[2020-01-05] MEDS: INSULIN GLARGINE 100 UNIT/ML SUBCUT SCH (08:33)
[2020-01-05] MEDS: PROPRANOLOL 40 MG TABLET PO SCH (08:33)
[2020-01-05] MEDS: GABAPENTIN 400 MG CAPSULE PO SCH (08:34)
[2020-01-05] MEDS: APIXABAN 2.5 MG TABLET PO SCH (08:34)
[2020-01-05] MEDS ORDERED: ROSUVASTATIN 20 MG TABLET PO SCH (09:00)
[2020-01-05] MEDS ORDERED: ASPIRIN CHEW 81 MG TABLET PO SCH (09:00)
[2020-01-05] MEDS ORDERED: TURMERIC 400 MG PO SCH (09:00)
[2020-01-05] MEDS ORDERED: glipiZIDE 10 MG TABLET PO SCH (09:00)
[2020-01-05] MEDS ORDERED: CHOLECALCIFEROL 5,000 UNIT TABLET PO SCH (09:00)
[2020-01-05] MEDS ORDERED: LOSARTAN 25 MG TABLET PO SCH (09:00)
[2020-01-05 11:02] VITALS: BP 169/89
== END 2020-01-05 12:30 | disposition home health service (06) | DRG 637 ==
LOC: EDUNIT# → EDBD → N.ED 10:07 → SUATTDRO 11:59 → N.EDINP 11:59 → N.CC 13:15 → N.4E 01-03 16:26
PROVIDERS: ADMIT Internal Medicine; ATTEND Internal Medicine

== ENCOUNTER 2020-02-07 18:52 | Inpatient (IN) ==
[2020-02-07] MEDS ORDERED: methylPREDNISolone SOD SUC 125 MG/2 ML VIAL ONE (19:33)
[2020-02-07] MEDS ORDERED: hydrALAZINE 20 MG/1 ML VIAL ONE (19:33)
[2020-02-07] MEDS ORDERED: methylPREDNISolone SOD SUC 125 MG/2 ML VIAL IV STA (19:38)
[2020-02-07] MEDS ORDERED: ALBUTEROL/IPRATROPIUM 3 ML NEB RESP TX STA (19:38)
[2020-02-07] MEDS ORDERED: hydrALAZINE 20 MG/1 ML VIAL IV STA (19:38)
[2020-02-07] MEDS ORDERED: SODIUM CHLORIDE 0.9% 1,000 ML IV STA ×2 (20:19→23:15)
[2020-02-07 20:20] LABS: ABG Base Excess -8.8 MMOL/L (-2.5-2.5); ABG HCO3 17.4 MMOL/L (20-26); ABG PCO2 49.8 MM HG (35-48); ABG TCO2 17.9 MMOL/L (23-27); Allen Test Positive; Pt O2 Delivery Device Ventilator
[2020-02-07 20:28] LABS: ABG PH 7.202 (7.35-7.45)
[2020-02-07 21:30] LABS: Bilirubin,Urine Negative (Negative); Blood, Urine Negative (Negative); Glucose,Urine (UA) >=500 mg/dL (Negative); Granular Casts,Urine 5 /LPF (0-1); Hyaline Casts,Urine 7 /LPF (0-3); Ketones,Urine 80 mg/dL (Negative); Mucus,Urine Occasional /LPF (Occasional); Nitrite,Urine Negative (Negative); Protein,Urine 100 MG/DL; Squamous Epithelial Cell,Urine Occasional /HPF (0-10); Urine Appearance Slightly Hazy (Clear); Urine Color Yellow (Yellow); Urine Specific Gravity 1.021 (1.001-1.035); Urine Urobilinogen < 2.0 EU/DL (0.2-1.0)
[2020-02-07 21:34] LABS: Basophils # 0.1 10*3/uL (0.0-0.2); Basophils % 0.3 % (0.0-0.8); Hematocrit 38.1 VOL% (35.7-47.0); Hemoglobin 11.6 GM/DL (12.0-16.0); Immature Granulocytes Absolute 0.52 #; Lymphocytes # 1.4 10*3/uL (1.4-4.0); Lymphocytes % 5.3 % (21.3-54.2); Mean Corpuscular HGB Conc 30.4 GM/DL (32-36); Mean Corpuscular Volume 91.4 FL (87-102); Mean Platelet Volume 9.4 FL (9.6-12.0); Monocytes % 2.6 % (1.7-12.7); NRBC # 0.02 10*3/uL; Neutrophils % 89.8 % (38.7-73.9); Platelet Count 268 T/CUMM (130-400); Red Blood Count 4.17 MC/CUMM (3.8-5.5); Red Cell Distribution Width 14.1 % (9.3-17.3); White Blood Count 25.8 T/CUMM (4-12)
[2020-02-07 21:54] LABS: Band Neutrophils 9 % (0-10); Lymphocytes 7 % (20-55); Metamyelocytes 2 %; Segmented Neutrophils 80 % (50-85); Total Cells Counted 100
[2020-02-07 21:55] LABS: Platelet Estimate Normal
[2020-02-07 21:57] LABS: INR 1.3; Partial Thromboplastin Time 27.5 SECS (23.9-33.8)
[2020-02-07 22:09] LABS: Alanine Aminotransferase 18 U/L (13-56); Albumin 3.4 G/DL (3.4-5.0); Alkaline Phosphatase 115 U/L (45-117); Aspartate Amino Transferase 18 U/L (0-37); Blood Urea Nitrogen 11 MG/DL (7-18); Calcium 9.5 MG/DL (8.5-10.1); Estimated Glom Filtration Rate 93 ML/MIN; Glucose 223 MG/DL (74-106); Osmolality,Calculated 282.5 MOS/KG (273-304); Thyroid Stimulating Hormone 0.019 uIU/ml (0.358-3.74); Troponin I < 0.015 NG/ML (0.00-0.045)
[2020-02-07] MEDS ORDERED: ETOMIDATE 20 MG/10 ML VIAL IV ONE (22:11)
[2020-02-07] MEDS ORDERED: ROCURONIUM 100 MG/10 ML VIAL IV ONE (22:12)
[2020-02-07] MEDS ORDERED: cefTRIAXone 1,000 MG in SODIUM CHLORIDE 0.9% 100 ML IV STA (23:15)
[2020-02-07 23:29] LABS: ABG Base Excess -12.8 MMOL/L (-2.5-2.5); ABG HCO3 14.6 MMOL/L (20-26); ABG Oxygen Saturation 99.7 % (95-100); ABG PH 7.273 (7.35-7.45); ABG TCO2 11.8 MMOL/L (23-27); Allen Test Positive; Pt O2 Delivery Device Ventilator
[2020-02-08] MEDS ORDERED: MORPHINE 4 MG/1 ML VIAL IV PRN (02:03)
[2020-02-08] MEDS ORDERED: SODIUM CHLORIDE 0.9% 1,000 ML IV SCH (02:30)
[2020-02-08] MEDS ORDERED: DEXTROSE 50% 25 GM/50 ML VIAL IV PRN (02:49)
[2020-02-08] MEDS ORDERED: GLUCAGON 1 MG VIAL IM PRN (02:49)
[2020-02-08 03:17] LABS: Basophils % 0.1 % (0.0-0.8); Hematocrit 34.4 VOL% (35.7-47.0); Hemoglobin 10.4 GM/DL (12.0-16.0); Immature Granulocytes % 1.9 %; Immature Granulocytes Absolute 0.41 #; Lymphocytes # 0.8 10*3/uL (1.4-4.0); Lymphocytes % 3.7 % (21.3-54.2); Mean Corpuscular HGB Conc 30.2 GM/DL (32-36); Mean Corpuscular Volume 91.5 FL (87-102); Mean Platelet Volume 9.1 FL (9.6-12.0); Monocytes % 0.8 % (1.7-12.7); Neutrophils % 93.5 % (38.7-73.9); Platelet Count 282 T/CUMM (130-400); Red Blood Count 3.76 MC/CUMM (3.8-5.5); Red Cell Distribution Width 14.4 % (9.3-17.3); White Blood Count 21.3 T/CUMM (4-12)
[2020-02-08] MEDS: LEVOFLOXACIN INJ 750 MG in PREMIX 1 EACH IV SCH (03:32)
[2020-02-08 03:42] LABS: Calcium 8.6 MG/DL (8.5-10.1); Troponin I 0.019 NG/ML (0.00-0.045)
[2020-02-08 03:49] LABS: Band Neutrophils 1 % (0-10); Lymphocytes 3 % (20-55); Segmented Neutrophils 96 % (50-85); Total Cells Counted 100
[2020-02-08 03:50] LABS: Burr Cells 1+; Hypochromasia Slight; Platelet Estimate Normal
[2020-02-08 04:33] LABS: ABG HCO3 9.1 MMOL/L (20-26); ABG Oxygen Saturation 99.4 % (95-100); ABG PH 7.264 (7.35-7.45); ABG PO2 312.4 MM HG (80-95); ABG TCO2 9.8 MMOL/L (23-27); Allen Test Positive; Pt O2 Delivery Device Ventilator
[2020-02-08 04:35] LABS: ABG PCO2 20.6 MM HG (35-48)
[2020-02-08] MEDS: ONDANSETRON 4 MG/2 ML VIAL IV PRN (04:44)
[2020-02-08] MEDS ORDERED: SODIUM BICARBONATE 50 MEQ/50 ML VIAL IV ONE (04:52)
[2020-02-08] MEDS: INSULIN LISPRO 100 UNIT/ML SUBCUT SCH ×3 (05:26→18:24)
[2020-02-08] MEDS: SODIUM BICARB INJ 50 MEQ in SODIUM CHLORIDE 0.45% 1,000 ML IV SCH ×2 (05:26→16:30)
[2020-02-08] MEDS: LEVOTHYROXINE 125 MCG TABLET PO SCH (06:10)
[2020-02-08] MEDS: ROSUVASTATIN 20 MG TABLET PO SCH (08:08)
[2020-02-08] MEDS: ASPIRIN CHEW 81 MG TABLET PO SCH (08:08)
[2020-02-08] MEDS: ENOXAPARIN 40 MG/0.4 ML SYRINGE SUBCUT SCH (08:08)
[2020-02-08] MEDS ORDERED: LORazepam 2 MG/1 ML VIAL ONE (09:23)
[2020-02-08] MEDS: LORazepam 2 MG/1 ML VIAL IV PRN (09:33)
[2020-02-08] MEDS ORDERED: SODIUM CHLORIDE 0.9% 1,000 ML IV ONE (10:00)
[2020-02-08 10:12] LABS: ABG Base Excess -10.3 MMOL/L (-2.5-2.5); ABG HCO3 16.3 MMOL/L (20-26); ABG PCO2 26.3 MM HG (35-48); ABG PH 7.343 (7.35-7.45); ABG TCO2 13.1 MMOL/L (23-27)
[2020-02-08] MEDS: fentaNYL INJ 1,250 MCG in SODIUM CHLORIDE 0.9% 225 ML IV PRN ×2 (10:38→23:50)
[2020-02-08 10:43] LABS: Calcium 8.4 MG/DL (8.5-10.1); Osmolality,Calculated 298.6 MOS/KG (273-304)
[2020-02-08] MEDS: MIDAZOLAM 100 MG in SODIUM CHLORIDE 0.9% 80 ML IV PRN (11:52)
[2020-02-08] MEDS: INSULIN GLARGINE 100 UNIT/ML SUBCUT SCH (21:08)
[2020-02-09] MEDS: INSULIN LISPRO 100 UNIT/ML SUBCUT SCH ×4 (00:11→17:32)
[2020-02-09] MEDS: SODIUM BICARB INJ 50 MEQ in SODIUM CHLORIDE 0.45% 1,000 ML IV SCH (02:35)
[2020-02-09] MEDS: LEVOFLOXACIN INJ 750 MG in PREMIX 1 EACH IV SCH (04:10)
[2020-02-09 04:23] LABS: Basophils % 0.2 % (0.0-0.8); Hematocrit 28.8 VOL% (35.7-47.0); Hemoglobin 9.2 GM/DL (12.0-16.0); Immature Granulocytes % 0.5 %; Immature Granulocytes Absolute 0.05 #; Lymphocytes # 1.8 10*3/uL (1.4-4.0); Lymphocytes % 19.3 % (21.3-54.2); Mean Corpuscular HGB Conc 31.9 GM/DL (32-36); Mean Corpuscular Volume 88.3 FL (87-102); Mean Platelet Volume 9.2 FL (9.6-12.0); Monocytes % 8.8 % (1.7-12.7); Neutrophils % 71.2 % (38.7-73.9); Platelet Count 229 T/CUMM (130-400); Red Blood Count 3.26 MC/CUMM (3.8-5.5); Red Cell Distribution Width 14.9 % (9.3-17.3); White Blood Count 9.3 T/CUMM (4-12)
[2020-02-09 04:23] LABS: ABG HCO3 19.5 MMOL/L (20-26); ABG PH 7.441 (7.35-7.45); ABG TCO2 15.7 MMOL/L (23-27); Allen Test Positive; Pt O2 Delivery Device Ventilator
[2020-02-09 04:52] LABS: Calcium 8.2 MG/DL (8.5-10.1); Osmolality,Calculated 297.3 MOS/KG (273-304)
[2020-02-09] MEDS: LEVOTHYROXINE 125 MCG TABLET PO SCH (06:09)
[2020-02-09] MEDS: ASPIRIN CHEW 81 MG TABLET PO SCH (09:19)
[2020-02-09] MEDS: ROSUVASTATIN 20 MG TABLET PO SCH (09:19)
[2020-02-09] MEDS: ENOXAPARIN 40 MG/0.4 ML SYRINGE SUBCUT SCH (09:19)
[2020-02-09] MEDS: POTASSIUM CHLORIDE 20 MEQ/15 ML UDCUP PER TUBE PRN ×4 (09:20→15:18)
[2020-02-09] MEDS: fentaNYL INJ 1,250 MCG in SODIUM CHLORIDE 0.9% 225 ML IV PRN ×2 (09:50→17:28)
[2020-02-09] MEDS: SODIUM CHLORIDE 0.45% 1,000 ML IV SCH ×2 (11:18→21:41)
[2020-02-09] MEDS ORDERED: DEXAMETHASONE 4 MG TABLET PO SCH (12:12)
[2020-02-09] MEDS: LORazepam 2 MG/1 ML VIAL IV PRN (14:01)
[2020-02-09] MEDS: PANTOPRAZOLE 40 MG VIAL IV SCH (14:03)
[2020-02-09] MEDS: MIDAZOLAM 100 MG in SODIUM CHLORIDE 0.9% 80 ML IV PRN (14:32)
[2020-02-09] MEDS: DEXAMETHASONE 4 MG TABLET PO SCH ×2 (15:18→20:32)
[2020-02-09] MEDS: INSULIN GLARGINE 100 UNIT/ML SUBCUT SCH (20:32)
[2020-02-10] MEDS: fentaNYL INJ 1,250 MCG in SODIUM CHLORIDE 0.9% 225 ML IV PRN ×2 (00:49→08:15)
[2020-02-10] MEDS: LEVOFLOXACIN INJ 750 MG in PREMIX 1 EACH IV SCH (03:00)
[2020-02-10] MEDS: MIDAZOLAM 100 MG in SODIUM CHLORIDE 0.9% 80 ML IV PRN (03:00)
[2020-02-10 03:25] LABS: ABG Base Excess -6.7 MMOL/L (-2.5-2.5); ABG Oxygen Saturation 99.4 % (95-100); ABG PCO2 27.1 MM HG (35-48); ABG PH 7.402 (7.35-7.45); ABG TCO2 15.2 MMOL/L (23-27); Allen Test Positive; Pt O2 Delivery Device Ventilator
[2020-02-10 05:01] LABS: Basophils % 0.1 % (0.0-0.8); Hematocrit 29.5 VOL% (35.7-47.0); Hemoglobin 9.3 GM/DL (12.0-16.0); Immature Granulocytes % 0.4 %; Immature Granulocytes Absolute 0.04 #; Lymphocytes # 0.6 10*3/uL (1.4-4.0); Lymphocytes % 5.3 % (21.3-54.2); Mean Corpuscular HGB Conc 31.5 GM/DL (32-36); Mean Corpuscular Volume 87.8 FL (87-102); Mean Platelet Volume 9.2 FL (9.6-12.0); Monocytes % 0.7 % (1.7-12.7); Neutrophils % 93.5 % (38.7-73.9); Platelet Count 244 T/CUMM (130-400); Red Blood Count 3.36 MC/CUMM (3.8-5.5); Red Cell Distribution Width 14.9 % (9.3-17.3); White Blood Count 11.1 T/CUMM (4-12)
[2020-02-10 05:12] LABS: Calcium 8.4 MG/DL (8.5-10.1); Osmolality,Calculated 287.3 MOS/KG (273-304)
[2020-02-10 05:27] LABS: Band Neutrophils 1 % (0-10); Hypochromasia Slight; Lymphocytes 6 % (20-55); Microcytosis Slight; Segmented Neutrophils 92 % (50-85); Total Cells Counted 100
[2020-02-10 05:28] LABS: Platelet Estimate Normal
[2020-02-10] MEDS: LEVOTHYROXINE 125 MCG TABLET PO SCH (06:02)
[2020-02-10] MEDS: INSULIN LISPRO 100 UNIT/ML SUBCUT SCH ×5 (06:02→23:54)
[2020-02-10] MEDS: SODIUM CHLORIDE 0.45% 1,000 ML IV SCH (08:17)
[2020-02-10] MEDS ORDERED: FUROSEMIDE 40 MG/4 ML VIAL IV ONE (09:30)
[2020-02-10] MEDS: PANTOPRAZOLE 40 MG VIAL IV SCH (09:40)
[2020-02-10] MEDS: ROSUVASTATIN 20 MG TABLET PO SCH ×2 (09:41→11:23)
[2020-02-10] MEDS: ASPIRIN CHEW 81 MG TABLET PO SCH ×2 (09:41→12:00)
[2020-02-10] MEDS: DEXAMETHASONE 4 MG TABLET PO SCH ×4 (09:42→20:44)
[2020-02-10] MEDS: DEXMEDETOMIDINE 200 MCG in SODIUM CHLORIDE 0.9% 48 ML IV PRN ×3 (10:21→22:47)
[2020-02-10] MEDS: diphenhydrAMINE 50 MG/1 ML VIAL IV SCH ×3 (11:21→23:54)
[2020-02-10] MEDS: FAMOTIDINE 20 MG/2 ML VIAL IV SCH ×2 (11:21→23:55)
[2020-02-10] MEDS: INSULIN GLARGINE 100 UNIT/ML SUBCUT SCH (20:45)
[2020-02-11 04:25] LABS: ABG Base Excess -3.7 MMOL/L (-2.5-2.5); ABG HCO3 21.4 MMOL/L (20-26); ABG Oxygen Saturation 99.2 % (95-100); ABG PCO2 29.3 MM HG (35-48); ABG PH 7.431 (7.35-7.45); ABG TCO2 17.2 MMOL/L (23-27); Allen Test Positive; Pt O2 Delivery Device Ventilator
[2020-02-11 04:49] LABS: Calcium 8.9 MG/DL (8.5-10.1); Osmolality,Calculated 299.1 MOS/KG (273-304)
[2020-02-11 04:58] LABS: Basophils % 0.1 % (0.0-0.8); Hematocrit 33.8 VOL% (35.7-47.0); Hemoglobin 10.8 GM/DL (12.0-16.0); Immature Granulocytes % 0.4 %; Immature Granulocytes Absolute 0.03 #; Lymphocytes # 0.6 10*3/uL (1.4-4.0); Lymphocytes % 7.3 % (21.3-54.2); Mean Corpuscular Volume 85.6 FL (87-102); Mean Platelet Volume 9.7 FL (9.6-12.0); Monocytes % 3.3 % (1.7-12.7); Neutrophils % 88.9 % (38.7-73.9); Platelet Count 273 T/CUMM (130-400); Red Blood Count 3.95 MC/CUMM (3.8-5.5); Red Cell Distribution Width 14.6 % (9.3-17.3); White Blood Count 8.5 T/CUMM (4-12)
[2020-02-11] MEDS: diphenhydrAMINE 50 MG/1 ML VIAL IV SCH ×3 (06:06→17:35)
[2020-02-11] MEDS: INSULIN LISPRO 100 UNIT/ML SUBCUT SCH ×3 (06:06→17:36)
[2020-02-11] MEDS: DEXMEDETOMIDINE 200 MCG in SODIUM CHLORIDE 0.9% 48 ML IV PRN ×3 (06:06→20:46)
[2020-02-11] MEDS: LEVOTHYROXINE 125 MCG TABLET PO SCH (06:07)
[2020-02-11] MEDS: ASPIRIN CHEW 81 MG TABLET PO SCH (09:00)
[2020-02-11] MEDS: ROSUVASTATIN 20 MG TABLET PO SCH (09:00)
[2020-02-11] MEDS: ENOXAPARIN 40 MG/0.4 ML SYRINGE SUBCUT SCH (09:01)
[2020-02-11] MEDS: DEXAMETHASONE 4 MG TABLET PO SCH ×3 (09:01→20:49)
[2020-02-11] MEDS: FAMOTIDINE 20 MG/2 ML VIAL IV SCH ×2 (11:13→23:15)
[2020-02-11] MEDS: INSULIN GLARGINE 100 UNIT/ML SUBCUT SCH (20:49)
[2020-02-12] MEDS: diphenhydrAMINE 50 MG/1 ML VIAL IV SCH ×4 (00:40→18:00)
[2020-02-12] MEDS: INSULIN LISPRO 100 UNIT/ML SUBCUT SCH ×6 (00:40→17:59)
[2020-02-12] MEDS: DEXMEDETOMIDINE 200 MCG in SODIUM CHLORIDE 0.9% 48 ML IV PRN ×5 (04:12→22:49)
[2020-02-12 04:34] LABS: Hematocrit 36.1 VOL% (35.7-47.0); Hemoglobin 11.8 GM/DL (12.0-16.0); Immature Granulocytes % 0.7 %; Immature Granulocytes Absolute 0.07 #; Lymphocytes # 0.7 10*3/uL (1.4-4.0); Lymphocytes % 6.6 % (21.3-54.2); Mean Corpuscular HGB Conc 32.7 GM/DL (32-36); Mean Corpuscular Volume 85.3 FL (87-102); Mean Platelet Volume 9.9 FL (9.6-12.0); Monocytes % 7.2 % (1.7-12.7); Neutrophils % 85.5 % (38.7-73.9); Platelet Count 276 T/CUMM (130-400); Red Blood Count 4.23 MC/CUMM (3.8-5.5); Red Cell Distribution Width 14.6 % (9.3-17.3); White Blood Count 10.3 T/CUMM (4-12)
[2020-02-12 04:54] LABS: Calcium 8.8 MG/DL (8.5-10.1); Osmolality,Calculated 299.1 MOS/KG (273-304)
[2020-02-12 05:22] LABS: ABG Base Excess -0.1 MMOL/L (-2.5-2.5); ABG HCO3 23.4 MMOL/L (20-26); ABG PCO2 34.5 MM HG (35-48); ABG TCO2 24.5 MMOL/L (23-27); Allen Test Positive; Pt O2 Delivery Device Ventilator
[2020-02-12] MEDS: LEVOTHYROXINE 125 MCG TABLET PO SCH (05:59)
[2020-02-12] MEDS ORDERED: INSULIN GLARGINE 100 UNIT/ML SUBCUT SCH ×2 (08:13→10:07)
[2020-02-12] MEDS: ASPIRIN CHEW 81 MG TABLET PO SCH (08:51)
[2020-02-12] MEDS: ROSUVASTATIN 20 MG TABLET PO SCH (08:51)
[2020-02-12] MEDS: DEXAMETHASONE 4 MG TABLET PO SCH ×3 (08:51→20:20)
[2020-02-12] MEDS: ENOXAPARIN 40 MG/0.4 ML SYRINGE SUBCUT SCH (08:51)
[2020-02-12] MEDS: POTASSIUM CHLORIDE 20 MEQ/15 ML UDCUP PER TUBE PRN (08:52)
[2020-02-12] MEDS: INSULIN GLARGINE 100 UNIT/ML SUBCUT SCH (10:33)
[2020-02-12] MEDS: FAMOTIDINE 20 MG/2 ML VIAL IV SCH ×2 (11:16→22:27)
[2020-02-13] MEDS: diphenhydrAMINE 50 MG/1 ML VIAL IV SCH ×4 (00:21→18:15)
[2020-02-13] MEDS: INSULIN LISPRO 100 UNIT/ML SUBCUT SCH ×8 (00:22→18:17)
[2020-02-13 04:32] LABS: ABG Base Excess 0.6 MMOL/L (-2.5-2.5); ABG Oxygen Saturation 98.5 % (95-100); ABG PH 7.439 (7.35-7.45); ABG TCO2 21.4 MMOL/L (23-27); Allen Test Positive; Pt O2 Delivery Device Ventilator
[2020-02-13 04:36] LABS: Basophils % 0.1 % (0.0-0.8); Hematocrit 39.5 VOL% (35.7-47.0); Hemoglobin 12.5 GM/DL (12.0-16.0); Immature Granulocytes % 0.4 %; Immature Granulocytes Absolute 0.05 #; Lymphocytes # 0.9 10*3/uL (1.4-4.0); Lymphocytes % 7.9 % (21.3-54.2); Mean Corpuscular HGB Conc 31.6 GM/DL (32-36); Mean Corpuscular Volume 87.2 FL (87-102); Mean Platelet Volume 9.8 FL (9.6-12.0); Monocytes % 8.8 % (1.7-12.7); Neutrophils % 82.8 % (38.7-73.9); Platelet Count 285 T/CUMM (130-400); Red Blood Count 4.53 MC/CUMM (3.8-5.5); Red Cell Distribution Width 14.6 % (9.3-17.3); White Blood Count 11.7 T/CUMM (4-12)
[2020-02-13 04:43] LABS: Calcium 8.5 MG/DL (8.5-10.1); Osmolality,Calculated 304.8 MOS/KG (273-304)
[2020-02-13] MEDS: LEVOTHYROXINE 125 MCG TABLET PO SCH (05:41)
[2020-02-13] MEDS: DEXMEDETOMIDINE 200 MCG in SODIUM CHLORIDE 0.9% 48 ML IV PRN ×3 (05:42→12:09)
[2020-02-13] MEDS: ENOXAPARIN 40 MG/0.4 ML SYRINGE SUBCUT SCH (08:40)
[2020-02-13] MEDS: INSULIN GLARGINE 100 UNIT/ML SUBCUT SCH ×2 (08:42→20:45)
[2020-02-13] MEDS: DEXAMETHASONE 4 MG TABLET PO SCH ×3 (08:42→20:46)
[2020-02-13] MEDS: ASPIRIN CHEW 81 MG TABLET PO SCH (08:42)
[2020-02-13] MEDS: ROSUVASTATIN 20 MG TABLET PO SCH (08:42)
[2020-02-13] MEDS: POTASSIUM CHLORIDE 20 MEQ/15 ML UDCUP PER TUBE PRN (11:56)
[2020-02-13] MEDS: FAMOTIDINE 20 MG/2 ML VIAL IV SCH ×2 (12:01→23:07)
[2020-02-13] MEDS: DEXMEDETOMIDINE 400 MCG in SODIUM CHLORIDE 0.9% 96 ML IV PRN (16:30)
[2020-02-14] MEDS: diphenhydrAMINE 50 MG/1 ML VIAL IV SCH ×4 (00:32→18:05)
[2020-02-14] MEDS: INSULIN LISPRO 100 UNIT/ML SUBCUT SCH ×8 (00:32→18:14)
[2020-02-14] MEDS: DEXMEDETOMIDINE 400 MCG in SODIUM CHLORIDE 0.9% 96 ML IV PRN (01:34)
[2020-02-14 03:20] LABS: ABG Base Excess 1.2 MMOL/L (-2.5-2.5); ABG HCO3 25.5 MMOL/L (20-26); ABG Oxygen Saturation 98.4 % (95-100); ABG PCO2 36.8 MM HG (35-48); ABG PH 7.442 (7.35-7.45); Allen Test Positive; Pt O2 Delivery Device Ventilator
[2020-02-14] MEDS: LEVOTHYROXINE 125 MCG TABLET PO SCH (05:42)
[2020-02-14] MEDS ORDERED: SUGAMMADEX 200 MG/2 ML VIAL IV ONE (08:35)
[2020-02-14] MEDS ORDERED: ALBUTEROL/IPRATROPIUM 3 ML NEB RESP TX ONE (09:54)
[2020-02-14] MEDS ORDERED: propofoL 200 MG/20 ML VIAL IV ONE (09:55)
[2020-02-14] MEDS ORDERED: MIDAZOLAM 2 MG/2 ML VIAL ONE (09:56)
[2020-02-14] MEDS ORDERED: LIDOCAINE 2% 5 ML VIAL ONE (09:56)
[2020-02-14] MEDS ORDERED: SEVOFLURANE 1 UNIT/15 MINUTE INH ONE (09:56)
[2020-02-14] MEDS ORDERED: ROCURONIUM 100 MG/10 ML VIAL IV ONE (09:57)
[2020-02-14] MEDS ORDERED: PHENYLEPHRINE 1 MG/10 ML SYRINGE IV ONE (09:57)
[2020-02-14] MEDS ORDERED: fentaNYL 100 MCG/2 ML VIAL ONE (09:57)
[2020-02-14] MEDS ORDERED: DEXAMETHASONE 4 MG/1 ML VIAL ONE (09:57)
[2020-02-14] MEDS ORDERED: ETOMIDATE 40 MG/20 ML VIAL IV ONE (09:57)
[2020-02-14] MEDS ORDERED: ONDANSETRON 4 MG/2 ML VIAL ONE (09:57)
[2020-02-14] MEDS: ALBUTEROL/IPRATROPIUM 3 ML NEB RESP TX SCH ×4 (10:01→23:37)
[2020-02-14] MEDS: ENOXAPARIN 40 MG/0.4 ML SYRINGE SUBCUT SCH (10:56)
[2020-02-14] MEDS: INSULIN GLARGINE 100 UNIT/ML SUBCUT SCH ×2 (11:05→20:33)
[2020-02-14] MEDS: FAMOTIDINE 20 MG/2 ML VIAL IV SCH (11:05)
[2020-02-14] MEDS: ROSUVASTATIN 20 MG TABLET PO SCH ×2 (11:17→14:14)
[2020-02-14] MEDS: DEXAMETHASONE 4 MG TABLET PO SCH ×3 (11:17→20:34)
[2020-02-14] MEDS: ASPIRIN CHEW 81 MG TABLET PO SCH ×2 (11:17→14:14)
[2020-02-15] MEDS: FAMOTIDINE 20 MG/2 ML VIAL IV SCH ×2 (00:01→12:18)
[2020-02-15] MEDS: diphenhydrAMINE 50 MG/1 ML VIAL IV SCH ×4 (00:02→18:06)
[2020-02-15] MEDS: INSULIN LISPRO 100 UNIT/ML SUBCUT SCH ×8 (00:02→18:08)
[2020-02-15] MEDS: ALBUTEROL/IPRATROPIUM 3 ML NEB RESP TX SCH ×7 (02:55→23:41)
[2020-02-15] MEDS: LORazepam 2 MG/1 ML VIAL IV PRN ×2 (03:09→08:57)
[2020-02-15 04:23] LABS: Basophils % 0.1 % (0.0-0.8); Hematocrit 36.7 VOL% (35.7-47.0); Hemoglobin 11.4 GM/DL (12.0-16.0); Immature Granulocytes % 0.7 %; Immature Granulocytes Absolute 0.11 #; Lymphocytes % 6.4 % (21.3-54.2); Mean Corpuscular HGB Conc 31.1 GM/DL (32-36); Mean Corpuscular Volume 88.4 FL (87-102); Mean Platelet Volume 10.8 FL (9.6-12.0); Monocytes % 5.9 % (1.7-12.7); Neutrophils % 86.9 % (38.7-73.9); Platelet Count 251 T/CUMM (130-400); Red Blood Count 4.15 MC/CUMM (3.8-5.5); Red Cell Distribution Width 14.7 % (9.3-17.3); White Blood Count 15.3 T/CUMM (4-12)
[2020-02-15 04:43] LABS: Calcium 8.7 MG/DL (8.5-10.1); Osmolality,Calculated 289.5 MOS/KG (273-304)
[2020-02-15] MEDS: LEVOTHYROXINE 125 MCG TABLET PO SCH (05:33)
[2020-02-15] MEDS ORDERED: hydrALAZINE 20 MG/1 ML VIAL IV PRN (08:35)
[2020-02-15] MEDS ORDERED: LORazepam 2 MG/1 ML VIAL ONE (08:46)
[2020-02-15] MEDS: ENOXAPARIN 40 MG/0.4 ML SYRINGE SUBCUT SCH (08:54)
[2020-02-15] MEDS: ASPIRIN CHEW 81 MG TABLET PO SCH (08:55)
[2020-02-15] MEDS: DEXAMETHASONE 4 MG TABLET PO SCH ×2 (08:55→16:27)
[2020-02-15] MEDS: ROSUVASTATIN 20 MG TABLET PO SCH (08:55)
[2020-02-15] MEDS: INSULIN GLARGINE 100 UNIT/ML SUBCUT SCH (08:56)
[2020-02-15] MEDS: NIFEdipine 10 MG CAPSULE PO PRN (19:23)
[2020-02-15] MEDS ORDERED: HALOPERIDOL 5 MG/ML AMP IV ONE (20:25)
[2020-02-15] MEDS: FAMOTIDINE 20 MG TABLET PO SCH (20:33)
[2020-02-15] MEDS ORDERED: INSULIN GLARGINE 100 UNIT/ML SUBCUT SCH (21:00)
[2020-02-15] MEDS ORDERED: METOPROLOL TARTRATE 5 MG/5 ML VIAL IV ONE (21:01)
[2020-02-15] MEDS ORDERED: HALOPERIDOL 5 MG/ML AMP IV PRN (23:56)
[2020-02-16] MEDS: INSULIN LISPRO 100 UNIT/ML SUBCUT SCH ×8 (00:06→18:34)
[2020-02-16] MEDS: NIFEdipine 10 MG CAPSULE PO PRN (00:15)
[2020-02-16] MEDS: ALBUTEROL/IPRATROPIUM 3 ML NEB RESP TX SCH ×6 (04:27→22:57)
[2020-02-16] MEDS: LEVOTHYROXINE 125 MCG TABLET PO SCH (06:17)
[2020-02-16 08:27] LABS: Basophils % 0.1 % (0.0-0.8); Eosinophils % 0.1 % (0.00-10.9); Hematocrit 37.6 VOL% (35.7-47.0); Hemoglobin 11.9 GM/DL (12.0-16.0); Immature Granulocytes % 0.7 %; Immature Granulocytes Absolute 0.11 #; Lymphocytes # 2.7 10*3/uL (1.4-4.0); Lymphocytes % 17.9 % (21.3-54.2); Mean Corpuscular HGB Conc 31.6 GM/DL (32-36); Mean Corpuscular Volume 86.4 FL (87-102); Mean Platelet Volume 9.8 FL (9.6-12.0); Monocytes % 9.1 % (1.7-12.7); Neutrophils % 72.1 % (38.7-73.9); Platelet Count 266 T/CUMM (130-400); Red Blood Count 4.35 MC/CUMM (3.8-5.5); Red Cell Distribution Width 14.9 % (9.3-17.3)
[2020-02-16] MEDS: ENOXAPARIN 40 MG/0.4 ML SYRINGE SUBCUT SCH (08:40)
[2020-02-16 08:48] LABS: Calcium 8.8 MG/DL (8.5-10.1); Osmolality,Calculated 282.1 MOS/KG (273-304)
[2020-02-16] MEDS ORDERED: INSULIN GLARGINE 100 UNIT/ML SUBCUT SCH (09:00)
[2020-02-16] MEDS ORDERED: LOSARTAN 25 MG TABLET PO SCH (09:00)
[2020-02-16] MEDS: LOSARTAN 25 MG TABLET PO SCH ×2 (09:17→09:29)
[2020-02-16] MEDS: FAMOTIDINE 20 MG TABLET PO SCH ×2 (09:17→20:51)
[2020-02-16] MEDS: ROSUVASTATIN 20 MG TABLET PO SCH (09:17)
[2020-02-16] MEDS: ASPIRIN CHEW 81 MG TABLET PO SCH (09:17)
[2020-02-16] MEDS: POTASSIUM CHLORIDE 20 MEQ/15 ML UDCUP PER TUBE PRN (09:19)
[2020-02-16] MEDS: POTASSIUM CHLORIDE 20 MEQ PACK PO SCH ×2 (10:21→20:51)
[2020-02-16] MEDS: BUDESONIDE 0.5 MG/2 ML NEB RESP TX SCH (20:04)
[2020-02-16] MEDS: INSULIN GLARGINE 100 UNIT/ML SUBCUT SCH (20:51)
[2020-02-16] MEDS: PHENOL 1.4% THROAT SPRAY 177 ML BOTTLE PO PRN (20:51)
[2020-02-17] MEDS: INSULIN LISPRO 100 UNIT/ML SUBCUT SCH ×8 (00:50→21:36)
[2020-02-17] MEDS: ALBUTEROL/IPRATROPIUM 3 ML NEB RESP TX SCH ×6 (03:04→23:23)
[2020-02-17] MEDS: LEVOTHYROXINE 125 MCG TABLET PO SCH (06:41)
[2020-02-17 06:58] LABS: Calcium 8.5 MG/DL (8.5-10.1); Osmolality,Calculated 280.5 MOS/KG (273-304)
[2020-02-17] MEDS: BUDESONIDE 0.5 MG/2 ML NEB RESP TX SCH ×2 (07:25→19:29)
[2020-02-17] MEDS: ENOXAPARIN 40 MG/0.4 ML SYRINGE SUBCUT SCH (08:54)
[2020-02-17] MEDS: INSULIN GLARGINE 100 UNIT/ML SUBCUT SCH ×2 (08:54→21:37)
[2020-02-17] MEDS: ONDANSETRON 4 MG/2 ML VIAL IV PRN (08:59)
[2020-02-17] MEDS: FAMOTIDINE 20 MG TABLET PO SCH ×2 (09:57→21:37)
[2020-02-17] MEDS: ROSUVASTATIN 20 MG TABLET PO SCH (09:57)
[2020-02-17] MEDS: LOSARTAN 25 MG TABLET PO SCH (09:57)
[2020-02-17] MEDS: ASPIRIN CHEW 81 MG TABLET PO SCH (09:57)
[2020-02-17] MEDS: POTASSIUM CHLORIDE 20 MEQ PACK PO SCH (09:57)
[2020-02-17] MEDS: LACTULOSE 20 GM/30 ML UDCUP PO PRN (12:04)
[2020-02-17] MEDS: METOPROLOL TARTRATE 25 MG TABLET PO SCH ×2 (15:22→21:37)
[2020-02-17 15:30] LABS: Basophils % 0.1 % (0.0-0.8); Eosinophils % 0.2 % (0.00-10.9); Hematocrit 36.3 VOL% (35.7-47.0); Hemoglobin 11.7 GM/DL (12.0-16.0); Immature Granulocytes % 1.2 %; Immature Granulocytes Absolute 0.26 #; Lymphocytes # 1.7 10*3/uL (1.4-4.0); Lymphocytes % 7.8 % (21.3-54.2); Mean Corpuscular HGB Conc 32.2 GM/DL (32-36); Mean Corpuscular Volume 87.1 FL (87-102); Mean Platelet Volume 9.6 FL (9.6-12.0); Monocytes % 9.7 % (1.7-12.7); Platelet Count 262 T/CUMM (130-400); Red Blood Count 4.17 MC/CUMM (3.8-5.5); Red Cell Distribution Width 14.8 % (9.3-17.3); White Blood Count 22.1 T/CUMM (4-12)
[2020-02-17 16:00] LABS: Band Neutrophils 1 % (0-10); Lymphocytes 5 % (20-55); Metamyelocytes 1 %; Total Cells Counted 100
[2020-02-17 16:02] LABS: Hypochromasia Slight; Platelet Estimate Normal; Segmented Neutrophils 83 % (50-85)
[2020-02-17] MEDS: metroNIDAZOLE INJ 500 MG in PREMIX 1 EACH IV SCH (18:12)
[2020-02-17] MEDS: MEROPENEM 500 MG in SODIUM CHLORIDE 0.9% 100 ML IV SCH (20:58)
[2020-02-17] MEDS: POTASSIUM CHLORIDE 20 MEQ TABLET PO SCH (21:37)
[2020-02-17] MEDS: PHENOL 1.4% THROAT SPRAY 177 ML BOTTLE PO PRN (21:38)
[2020-02-17] MEDS: ACETAMINOPHEN 325 MG TABLET PO PRN (21:38)
[2020-02-18] MEDS: MEROPENEM 500 MG in SODIUM CHLORIDE 0.9% 100 ML IV SCH ×4 (02:58→20:54)
[2020-02-18] MEDS: metroNIDAZOLE INJ 500 MG in PREMIX 1 EACH IV SCH ×3 (02:58→18:09)
[2020-02-18] MEDS: ALBUTEROL/IPRATROPIUM 3 ML NEB RESP TX SCH ×5 (03:18→19:10)
[2020-02-18 04:04] LABS: Basophils % 0.2 % (0.0-0.8); Eosinophils # 0.1 10*3/uL (0.0-0.87); Eosinophils % 0.3 % (0.00-10.9); Hematocrit 37.2 VOL% (35.7-47.0); Hemoglobin 11.7 GM/DL (12.0-16.0); Immature Granulocytes % 0.8 %; Immature Granulocytes Absolute 0.17 #; Lymphocytes # 1.4 10*3/uL (1.4-4.0); Lymphocytes % 6.7 % (21.3-54.2); Mean Corpuscular HGB Conc 31.5 GM/DL (32-36); Mean Corpuscular Volume 86.5 FL (87-102); Mean Platelet Volume 9.7 FL (9.6-12.0); Monocytes % 7.4 % (1.7-12.7); NRBC # 0.02 10*3/uL; Neutrophils % 84.6 % (38.7-73.9); Platelet Count 259 T/CUMM (130-400); Red Cell Distribution Width 14.9 % (9.3-17.3)
[2020-02-18 04:22] LABS: Calcium 8.3 MG/DL (8.5-10.1); Osmolality,Calculated 275.7 MOS/KG (273-304)
[2020-02-18 04:35] LABS: Band Neutrophils 2 % (0-10); Hypochromasia 1+; Lymphocytes 6 % (20-55); Microcytosis Slight; Segmented Neutrophils 84 % (50-85); Total Cells Counted 100
[2020-02-18] MEDS: LEVOTHYROXINE 125 MCG TABLET PO SCH (05:53)
[2020-02-18] MEDS: BUDESONIDE 0.5 MG/2 ML NEB RESP TX SCH ×2 (06:41→19:10)
[2020-02-18] MEDS: LACTULOSE 20 GM/30 ML UDCUP PO PRN (07:47)
[2020-02-18] MEDS: ENOXAPARIN 40 MG/0.4 ML SYRINGE SUBCUT SCH (07:48)
[2020-02-18] MEDS: INSULIN GLARGINE 100 UNIT/ML SUBCUT SCH ×2 (08:01→20:49)
[2020-02-18] MEDS: ROSUVASTATIN 20 MG TABLET PO SCH (08:02)
[2020-02-18] MEDS: ASPIRIN CHEW 81 MG TABLET PO SCH (08:02)
[2020-02-18] MEDS: INSULIN LISPRO 100 UNIT/ML SUBCUT SCH ×8 (08:03→20:51)
[2020-02-18] MEDS: FAMOTIDINE 20 MG TABLET PO SCH ×2 (08:03→20:47)
[2020-02-18] MEDS: METOPROLOL TARTRATE 25 MG TABLET PO SCH ×2 (08:03→20:47)
[2020-02-18] MEDS: POTASSIUM CHLORIDE 20 MEQ TABLET PO SCH (08:03)
[2020-02-18] MEDS: LOSARTAN 25 MG TABLET PO SCH (08:05)
[2020-02-18] MEDS: ACETAMINOPHEN 325 MG TABLET PO PRN (21:37)
[2020-02-19] MEDS: ALBUTEROL/IPRATROPIUM 3 ML NEB RESP TX SCH ×6 (00:16→19:49)
[2020-02-19] MEDS: metroNIDAZOLE INJ 500 MG in PREMIX 1 EACH IV SCH ×3 (01:40→17:08)
[2020-02-19] MEDS: MEROPENEM 500 MG in SODIUM CHLORIDE 0.9% 100 ML IV SCH ×4 (02:41→20:40)
[2020-02-19 04:29] LABS: Basophils % 0.1 % (0.0-0.8); Eosinophils # 0.1 10*3/uL (0.0-0.87); Eosinophils % 0.5 % (0.00-10.9); Hematocrit 32.9 VOL% (35.7-47.0); Hemoglobin 10.3 GM/DL (12.0-16.0); Immature Granulocytes % 1.3 %; Immature Granulocytes Absolute 0.36 #; Lymphocytes # 2.1 10*3/uL (1.4-4.0); Lymphocytes % 7.7 % (21.3-54.2); Mean Corpuscular HGB Conc 31.3 GM/DL (32-36); Mean Corpuscular Volume 88.7 FL (87-102); Monocytes % 8.2 % (1.7-12.7); Neutrophils % 82.2 % (38.7-73.9); Platelet Count 266 T/CUMM (130-400); Red Blood Count 3.71 MC/CUMM (3.8-5.5)
[2020-02-19 04:57] LABS: Hypochromasia 1+; Microcytosis Slight
[2020-02-19 04:58] LABS: Burr Cells Slight; Platelet Estimate Normal
[2020-02-19 05:06] LABS: Calcium 8.4 MG/DL (8.5-10.1); Osmolality,Calculated 266.2 MOS/KG (273-304)
[2020-02-19] MEDS: LEVOTHYROXINE 125 MCG TABLET PO SCH (05:33)
[2020-02-19] MEDS: BUDESONIDE 0.5 MG/2 ML NEB RESP TX SCH ×2 (07:10→19:49)
[2020-02-19] MEDS: ROSUVASTATIN 20 MG TABLET PO SCH (08:44)
[2020-02-19] MEDS: LOSARTAN 25 MG TABLET PO SCH (08:44)
[2020-02-19] MEDS: ASPIRIN CHEW 81 MG TABLET PO SCH (08:44)
[2020-02-19] MEDS: ENOXAPARIN 40 MG/0.4 ML SYRINGE SUBCUT SCH (08:44)
[2020-02-19] MEDS: METOPROLOL TARTRATE 25 MG TABLET PO SCH ×2 (08:44→20:33)
[2020-02-19] MEDS: FAMOTIDINE 20 MG TABLET PO SCH ×2 (08:44→20:34)
[2020-02-19] MEDS: INSULIN GLARGINE 100 UNIT/ML SUBCUT SCH ×2 (08:45→20:34)
[2020-02-19] MEDS: INSULIN LISPRO 100 UNIT/ML SUBCUT SCH ×8 (08:45→20:33)
[2020-02-19] MEDS: ACETAMINOPHEN 325 MG TABLET PO PRN ×2 (10:47→18:15)
[2020-02-19] MEDS: LACTULOSE 20 GM/30 ML UDCUP PO PRN (18:15)
[2020-02-19] MEDS: DOCUSATE SODIUM 100 MG CAPSULE PO SCH (20:33)
[2020-02-19] MEDS: POLYETHYLENE GLYCOL POWDER 17 GM PACK PO SCH ×3 (20:34→20:52)
[2020-02-20] MEDS: ALBUTEROL/IPRATROPIUM 3 ML NEB RESP TX SCH ×7 (00:32→23:10)
[2020-02-20] MEDS: metroNIDAZOLE INJ 500 MG in PREMIX 1 EACH IV SCH ×3 (01:30→18:18)
[2020-02-20] MEDS: MEROPENEM 500 MG in SODIUM CHLORIDE 0.9% 100 ML IV SCH ×4 (02:30→20:38)
[2020-02-20 05:47] LABS: Basophils % 0.1 % (0.0-0.8); Eosinophils # 0.1 10*3/uL (0.0-0.87); Eosinophils % 0.7 % (0.00-10.9); Hematocrit 30.3 VOL% (35.7-47.0); Hemoglobin 9.6 GM/DL (12.0-16.0); Immature Granulocytes % 1.2 %; Immature Granulocytes Absolute 0.23 #; Lymphocytes # 1.3 10*3/uL (1.4-4.0); Lymphocytes % 6.7 % (21.3-54.2); Mean Corpuscular HGB Conc 31.7 GM/DL (32-36); Mean Corpuscular Volume 88.1 FL (87-102); Mean Platelet Volume 10.1 FL (9.6-12.0); Monocytes % 6.7 % (1.7-12.7); Neutrophils % 84.6 % (38.7-73.9); Platelet Count 280 T/CUMM (130-400); Red Blood Count 3.44 MC/CUMM (3.8-5.5); Red Cell Distribution Width 15.2 % (9.3-17.3)
[2020-02-20] MEDS: LEVOTHYROXINE 125 MCG TABLET PO SCH (05:48)
[2020-02-20 06:03] LABS: Calcium 8.1 MG/DL (8.5-10.1); Osmolality,Calculated 275.7 MOS/KG (273-304)
[2020-02-20] MEDS: BUDESONIDE 0.5 MG/2 ML NEB RESP TX SCH ×3 (07:55→19:10)
[2020-02-20] MEDS: INSULIN GLARGINE 100 UNIT/ML SUBCUT SCH ×2 (08:43→21:11)
[2020-02-20] MEDS: ENOXAPARIN 40 MG/0.4 ML SYRINGE SUBCUT SCH (08:44)
[2020-02-20] MEDS: FAMOTIDINE 20 MG TABLET PO SCH ×2 (08:44→21:11)
[2020-02-20] MEDS: ASPIRIN CHEW 81 MG TABLET PO SCH (08:44)
[2020-02-20] MEDS: LOSARTAN 25 MG TABLET PO SCH (08:45)
[2020-02-20] MEDS: METOPROLOL TARTRATE 25 MG TABLET PO SCH ×2 (08:45→21:11)
[2020-02-20] MEDS: POLYETHYLENE GLYCOL POWDER 17 GM PACK PO SCH ×2 (08:46→22:52)
[2020-02-20] MEDS: DOCUSATE SODIUM 100 MG CAPSULE PO SCH ×2 (08:46→21:10)
[2020-02-20] MEDS: LINACLOTIDE 145 MCG CAPSULE PO SCH (08:46)
[2020-02-20] MEDS: ROSUVASTATIN 20 MG TABLET PO SCH (08:48)
[2020-02-20] MEDS: INSULIN LISPRO 100 UNIT/ML SUBCUT SCH ×8 (08:49→21:12)
[2020-02-20] MEDS: POTASSIUM CHLORIDE 20 MEQ TABLET PO PRN ×2 (15:33→18:18)
[2020-02-20] MEDS: GABAPENTIN 400 MG CAPSULE PO SCH ×2 (15:33→21:11)
[2020-02-20] MEDS ORDERED: CLORAZEPATE 3.75 MG TABLET PO ONE (23:24)
[2020-02-21] MEDS: metroNIDAZOLE INJ 500 MG in PREMIX 1 EACH IV SCH ×2 (01:10→10:09)
[2020-02-21] MEDS: MEROPENEM 500 MG in SODIUM CHLORIDE 0.9% 100 ML IV SCH ×2 (03:59→08:51)
[2020-02-21] MEDS: ALBUTEROL/IPRATROPIUM 3 ML NEB RESP TX SCH ×4 (04:58→16:30)
[2020-02-21] MEDS: LEVOTHYROXINE 125 MCG TABLET PO SCH (06:01)
[2020-02-21] MEDS: BUDESONIDE 0.5 MG/2 ML NEB RESP TX SCH (07:34)
[2020-02-21] MEDS: INSULIN LISPRO 100 UNIT/ML SUBCUT SCH ×4 (08:45→12:08)
[2020-02-21] MEDS: LINACLOTIDE 145 MCG CAPSULE PO SCH (08:46)
[2020-02-21] MEDS: ASPIRIN CHEW 81 MG TABLET PO SCH (08:51)
[2020-02-21] MEDS: GABAPENTIN 400 MG CAPSULE PO SCH ×2 (08:51→16:54)
[2020-02-21] MEDS: ENOXAPARIN 40 MG/0.4 ML SYRINGE SUBCUT SCH (08:51)
[2020-02-21] MEDS: METOPROLOL TARTRATE 25 MG TABLET PO SCH (08:51)
[2020-02-21] MEDS: FAMOTIDINE 20 MG TABLET PO SCH (08:52)
[2020-02-21] MEDS: INSULIN GLARGINE 100 UNIT/ML SUBCUT SCH (08:52)
[2020-02-21] MEDS: DOCUSATE SODIUM 100 MG CAPSULE PO SCH (08:52)
[2020-02-21] MEDS: ROSUVASTATIN 20 MG TABLET PO SCH (08:52)
[2020-02-21] MEDS: LOSARTAN 25 MG TABLET PO SCH (08:52)
[2020-02-21] MEDS: POLYETHYLENE GLYCOL POWDER 17 GM PACK PO SCH (08:54)
[2020-02-21 09:15] LABS: Basophils % 0.1 % (0.0-0.8); Eosinophils # 0.1 10*3/uL (0.0-0.87); Eosinophils % 0.9 % (0.00-10.9); Hematocrit 31.3 VOL% (35.7-47.0); Immature Granulocytes % 0.7 %; Lymphocytes # 1.3 10*3/uL (1.4-4.0); Lymphocytes % 9.3 % (21.3-54.2); Mean Corpuscular HGB Conc 31.9 GM/DL (32-36); Mean Corpuscular Volume 86.7 FL (87-102); Mean Platelet Volume 9.1 FL (9.6-12.0); Monocytes % 8.9 % (1.7-12.7); Neutrophils % 80.1 % (38.7-73.9); Platelet Count 315 T/CUMM (130-400); Red Blood Count 3.61 MC/CUMM (3.8-5.5); Red Cell Distribution Width 15.6 % (9.3-17.3); White Blood Count 14.2 T/CUMM (4-12)
[2020-02-21 09:36] LABS: Calcium 8.3 MG/DL (8.5-10.1); Osmolality,Calculated 284.8 MOS/KG (273-304)
[2020-02-21 15:44] VITALS: BP 93/55
== END 2020-02-21 16:53 | disposition home health service (06) | DRG 167 ==
LOC: EDUNIT# → EDBD → N.ED 18:52 → SUATTDRO 02-08 00:47 → N.EDINP 02-08 00:47 → N.ICU 02-08 01:32 → N.5E 02-18 15:47
PROVIDERS: ADMIT Internal Medicine; ATTEND Family Medicine